=== PATIENT | male | born 1960 | race Caucasian/White ===

== ENCOUNTER 2016-05-18 14:10 | Inpatient (IN) | payer OTHER ==
[~2016-05-18] VITALS: Ht 172.7 cm; Wt 113.4 kg
[2016-05-18 14:35] LABS: BASOPHILS 0.4 % (0.0-2.0); EOSINOPHILS 2.3 % (0-7); HEMATOCRIT 47.5 % (42.0-54.0); IMMATURE GRANULOCYTES 0.4 % (0-5); LYMPHOCYTES 20.9 % (15-50); MCH 25.9 pg (26.0-34.0); MCHC 31.6 g/dL (31.0-37.0); MCV 81.9 fL (80.0-100.0); MEAN PLATELET VOLUME 9.6 fL (7.4-10.4); PLATELET COUNT 204 10x3/uL (130-400); RDW 15.5 % (11.5-14.5); WBC 9.4 10x3/uL (4.8-10.8)
[2016-05-18 15:16] LABS: ALBUMIN 3.3 g/dL (3.4-5.0); ALKALINE PHOSPHATASE 118 U/L (46-116); ALT (SGPT) 57 U/L (10-68); BILIRUBIN - TOTAL 0.78 mg/dL (0.2-1.3); CALC OSMOLALITY 280 mosm/kg (275-300); CALCIUM 8.8 mg/dL (8.5-10.1); CARBON DIOXIDE 26.5 mmol/L (21.0-32.0); CHLORIDE - SERUM 101 mmol/L (98-107); CREATININE - SERUM 0.9 mg/dL (0.6-1.3); GLUCOSE 195 mg/dL (74-106); POTASSIUM - SERUM 3.6 mmol/L (3.5-5.1); PROTEIN - SERUM 7.9 g/dL (6.4-8.2); SODIUM 138 mmol/L (136-145); UREA NITROGEN 12 mg/dL (7-18); eGFR NON AFRICAN AMERICAN > 90 mL/min (90-120)
[2016-05-18 19:54] LABS: BASOPHILS 0.7 % (0.0-2.0); HEMATOCRIT 46.5 % (42.0-54.0); IMMATURE GRANULOCYTES 0.4 % (0-5); LYMPHOCYTES 21.9 % (15-50); MCHC 32.3 g/dL (31.0-37.0); MCV 80.4 fL (80.0-100.0); MEAN PLATELET VOLUME 9.8 fL (7.4-10.4); MONOCYTES 8.7 % (2-11); NEUTROPHILS 65.3 % (40-80); PLATELET COUNT 231 10x3/uL (130-400); RBC 5.78 10x6/uL (4.20-6.10); RDW 15.5 % (11.5-14.5); WBC 9.5 10x3/uL (4.8-10.8)
[2016-05-19 01:19] VITALS: BP 181/80; BMI 38.1
[2016-05-19 08:15] VITALS: BP 178/96
--- NOTE | 2016-05-19 09:41 | NUR ---
Patient Name: VALORIE WILHELM Admission Status: ER Accout number: [id number] Admission Date: 05-18-2016 : 1960 Admission Diagnosis: Attending: LAUREL Current LOS: 1 Anticipated DC Date: 05-21-2016 Planned Disposition: Home or Self Care Primary Insurance: [facility] Discharge Planning Comments: CM MET WITH PATIENT REGARDING D/C NEEDS AND PLANS. PATIENT STATED HIS (JERMAIN) WILL PICK HIM UP AT DISCHARGE. PATIENT STATED HE IS INDEPENDENT WITH HIS CARE AND HAS NO DME. PATIENT STATED THERE ARE NO STEPS OR STAIRS AT HIS HOME. PATIENTS HAS NO PCP AND USES [facility] ON [address]. PATIENT HAS NOT EVER HAD HOME HEALTH BEFORE AND DOES NOT THINK HE WILL NEED IT. CM WILL CONTINUE TO FOLLOW PATIENT WITH D/C NEEDS AND PLANS. PCP NONE [facility] [address] [phone] JERMAIN (SPOUSE) [phone] Senior Commercial Loan Officer: Katarina Orta Is the patient Alert and Oriented? Yes 0 * How many steps to enter\exit or inside your home? 0 0 * PCP NONE 0 * Pharmacy [facility] [address] 0 * Preadmission Environment Home with Family 0 * ADLs Independent 0 * Equipment None 0 * List name and contact numbers for known caregivers / representatives who currently or will assist patient after discharge: JERMAIN (SPOUSE) [phone] * Community resources currently utilized None 0 * Additional services required to return to the preadmission environment? Yes 0 * Can the patient safely return to the preadmission environment? Yes 0 * Has this patient been hospitalized within the prior 30 days at any hospital? No 0 Grand Total: 0
--- NOTE | 2016-05-19 09:48 | NUR ---
WOUND CARE: NOTED OPEN WOUNDS TO LEFT CALF. PT STATES THEY STARTED AFTER HE FELL AND SCRAPED HIS LEG. WOUND TO LATERAL CALF MEASURES 11CM X 7CM - EDGES ARE IRREGULAR AND FLAT - WOUND BED IS PINK AND SHINY. WOUND TO BACK OF LEFT CALF MEASURES 4CM X 4CM - FLAT IRREGULAR EDGES - SHINY PINK WOUND BED. LEFT LOWER LEG IS EDEMATOUS (3+), HEMOSIDERIN STAINING NOTED, DRY PEELING SKIN NOTED ESPECIALLY AT ANKLES. PALPABLE PULSES. LARGE AMOUNT OF YELLOW DRAINAGE WAS NOTED ON DRESSING. PT IS UNSURE OF MED HX, STATES HE HASN'T GONE TO DR IN MANY YEARS. HE DID STATE THAT HE HAD A WOUND ON HIS RIGHT LOWER LEG ABOUT A YEAR AGO AND IT TOOK A LONG TIME TO HEAL. RECOMMEND APPLYING MAXORB AG TO WOUND BEDS AND WRAPPING WITH KERLIX TO SECURE. INSTRUCTED PT TO TRY TO KEEP LEG ELEVATED. HE VOICED UNDERSTANDING. WOUND CARE WILL CONTINUE TO MONITOR.
[2016-05-19 11:46] VITALS: BP 178/100
[2016-05-19 11:50] LABS: BASOPHILS 0.5 % (0.0-2.0); EOSINOPHILS 3.6 % (0-7); HEMATOCRIT 45.7 % (42.0-54.0); HEMOGLOBIN 14.3 g/dL (13.5-17.5); IMMATURE GRANULOCYTES 0.3 % (0-5); LYMPHOCYTES 23.4 % (15-50); MCH 25.5 pg (26.0-34.0); MCHC 31.3 g/dL (31.0-37.0); MCV 81.5 fL (80.0-100.0); MEAN PLATELET VOLUME 9.5 fL (7.4-10.4); MONOCYTES 8.5 % (2-11); NEUTROPHILS 63.7 % (40-80); PLATELET COUNT 216 10x3/uL (130-400); RBC 5.61 10x6/uL (4.20-6.10); RDW 15.3 % (11.5-14.5); WBC 7.3 10x3/uL (4.8-10.8)
[2016-05-19 12:08] LABS: ALKALINE PHOSPHATASE 109 U/L (46-116); ALT (SGPT) 66 U/L (10-68); CALC OSMOLALITY 273 mosm/kg (275-300); CALCIUM 8.4 mg/dL (8.5-10.1); CARBON DIOXIDE 28.2 mmol/L (21.0-32.0); CHLORIDE - SERUM 103 mmol/L (98-107); CREATININE - SERUM 0.8 mg/dL (0.6-1.3); PROTEIN - SERUM 7.8 g/dL (6.4-8.2); SODIUM 136 mmol/L (136-145); UREA NITROGEN 15 mg/dL (7-18); eGFR NON AFRICAN AMERICAN > 90 mL/min (90-120)
[2016-05-19 12:12] LABS: GLUCOSE 122 mg/dL (74-106)
[2016-05-19 13:05] VITALS: Ht 172.7 cm; Wt 113.4 kg
--- NOTE | 2016-05-19 13:33 | NUR ---
NUTRITION MONITORING & EVAL ATTEMPTED DM DIET EDU. PT EATING TAKEOUT LUNCH ON FIRST ATTEMPT, PT STATES TOO GROGGY FROM DEMEROL ON SECOND ATTEMPT. LEFT EDU PACKET IN ROOM. WILL ATTEMPT TO SEE PT AGAIN. RD FOLLOWING
[2016-05-19 16:10] VITALS: BP 165/89
[2016-05-19 19:00] VITALS: BP 183/92
--- NOTE | 2016-05-19 22:06 | NUR ---
RESTING IN BED EYES CLOSED. AROUSES TO VOICE. ALERT ORIENTED CONVERSANT. DENIES NEEDS. NO ACUTE DISTRESS NOTED
[2016-05-20] VITALS: BP 190/97
--- NOTE | 2016-05-20 00:07 | NUR ---
RESTING WITH EYES CLOSED, RESP WITH EASE, LE DSG CDI, SR'S UP CL IN REACH
[2016-05-20 04:00] VITALS: BP 103/86
--- NOTE | 2016-05-20 07:00 | NUR ---
PATIENT RESTING QUIETLY WHEN EYES CLOSED. WOKE PATIENT UP. PATIENT IN CONTACT ISOLATION. ISOLATION PRECAUTIONS MAINTAINED. EDUCATED PATIENT ON CONTACT ISOLATION. EXPLAINED THE REASON HE IS IN ISOLATION. PATIENT VERBALIZED UNDERSTANDING AND DENIES QUESTIONS.
[2016-05-20 07:05] LABS: BASOPHILS 0.6 % (0.0-2.0); EOSINOPHILS 4.1 % (0-7); HEMATOCRIT 44.8 % (42.0-54.0); HEMOGLOBIN 14.1 g/dL (13.5-17.5); IMMATURE GRANULOCYTES 0.3 % (0-5); LYMPHOCYTES 18.2 % (15-50); MCH 25.5 pg (26.0-34.0); MCHC 31.5 g/dL (31.0-37.0); MCV 80.9 fL (80.0-100.0); MONOCYTES 9.2 % (2-11); NEUTROPHILS 67.6 % (40-80); PLATELET COUNT 227 10x3/uL (130-400); RBC 5.54 10x6/uL (4.20-6.10); RDW 15.3 % (11.5-14.5); WBC 8.8 10x3/uL (4.8-10.8)
[2016-05-20 07:12] LABS: ALBUMIN 3.1 g/dL (3.4-5.0); ALKALINE PHOSPHATASE 109 U/L (46-116); ALT (SGPT) 57 U/L (10-68); BILIRUBIN - TOTAL 0.61 mg/dL (0.2-1.3); CALC OSMOLALITY 278 mosm/kg (275-300); CALCIUM 8.7 mg/dL (8.5-10.1); CARBON DIOXIDE 27.1 mmol/L (21.0-32.0); CHLORIDE - SERUM 105 mmol/L (98-107); CREATININE - SERUM 0.9 mg/dL (0.6-1.3); GLUCOSE 127 mg/dL (74-106); POTASSIUM - SERUM 4.1 mmol/L (3.5-5.1); PROTEIN - SERUM 7.4 g/dL (6.4-8.2); SODIUM 138 mmol/L (136-145); UREA NITROGEN 16 mg/dL (7-18); eGFR NON AFRICAN AMERICAN > 90 mL/min (90-120)
[2016-05-20 08:04] VITALS: BP 190/91
--- NOTE | 2016-05-20 08:25 | NUR ---
PATIENT AWAKE, ALERT AND ORIENTED X'S 4. RESPIRATIONS ARE EVEN AND UNLABORED ON ROOM AIR. PATIENT PREPARING TO GET DRESSING CHANGED, LUCI RICARDO LPN GOING TO DO DRESSING CHANGE. ADMINISTERED DEMERAL 25MG IV FOR PAIN.
--- NOTE | 2016-05-20 08:30 | NUR ---
DRESSING TO LEFT LOWER LEG CHANGED BY LUCI RICARDO LPN.
--- NOTE | 2016-05-20 08:30 | NUR ---
SPOKE WITH PASTORA KEANE RN WOUND CARE NURSE. NOTIFIED HER THAT MAXORB WAS STUCK TO WOUND. SHE STATED "CHANGE THE ORDER TO ADAPTIC."
[2016-05-20 11:39] VITALS: BP 181/87
--- NOTE | 2016-05-20 12:00 | NUR ---
NUTRITION MONITORING & EVAL SPOKE WITH PT RE:DIABETIC EDU. PT STATES HE WOULD PREFER TO SLEEP AT THIS TIME. RD FOLLOWING
[2016-05-20 15:36] VITALS: BP 143/85
[2016-05-20 19:00] VITALS: BP 163/100
[2016-05-21] VITALS: BP 171/98
[2016-05-21 04:00] VITALS: BP 198/110
--- NOTE | 2016-05-21 05:14 | NUR ---
BP 189/110 - GAVE APPRESOLINE 10 MG IV PUSH. NO OTHER NEEDS. CONTACT ISOLATION PRECAUTIONS OBSERVED.
[2016-05-21 05:39] LABS: BASOPHILS 0.5 % (0.0-2.0); EOSINOPHILS 3.6 % (0-7); HEMATOCRIT 47.6 % (42.0-54.0); HEMOGLOBIN 15.1 g/dL (13.5-17.5); IMMATURE GRANULOCYTES 0.4 % (0-5); MCH 25.7 pg (26.0-34.0); MCHC 31.7 g/dL (31.0-37.0); MCV 81.1 fL (80.0-100.0); MEAN PLATELET VOLUME 9.6 fL (7.4-10.4); MONOCYTES 11.1 % (2-11); NEUTROPHILS 67.4 % (40-80); PLATELET COUNT 202 10x3/uL (130-400); RBC 5.87 10x6/uL (4.20-6.10); RDW 15.8 % (11.5-14.5); WBC 9.3 10x3/uL (4.8-10.8)
[2016-05-21 05:52] LABS: ALBUMIN 3.2 g/dL (3.4-5.0); ALKALINE PHOSPHATASE 110 U/L (46-116); ALT (SGPT) 47 U/L (10-68); BILIRUBIN - TOTAL 0.61 mg/dL (0.2-1.3); CALC OSMOLALITY 274 mosm/kg (275-300); CALCIUM 8.9 mg/dL (8.5-10.1); CARBON DIOXIDE 25.6 mmol/L (21.0-32.0); CHLORIDE - SERUM 102 mmol/L (98-107); CREATININE - SERUM 0.9 mg/dL (0.6-1.3); GLUCOSE 103 mg/dL (74-106); POTASSIUM - SERUM 4.3 mmol/L (3.5-5.1); PROTEIN - SERUM 7.8 g/dL (6.4-8.2); SODIUM 137 mmol/L (136-145); UREA NITROGEN 16 mg/dL (7-18); eGFR NON AFRICAN AMERICAN > 90 mL/min (90-120)
--- NOTE | 2016-05-21 07:30 | NUR ---
PATIENT AWAKE, ALERT AND ORIENTED X'S 4. RESPIRATIONS ARE EVEN AND UNLABORED ON ROOM AIR. PATIENT LAYING IN BED. HOB 30 DEGREES. PATIENT DENIES NEEDS AT THIS TIME. CONTACT ISOLATION PRECAUTIONS MAINTAINED.
[2016-05-21 08:10] VITALS: BP 186/87
[2016-05-21 11:41] VITALS: BP 180/84
--- NOTE | 2016-05-21 12:03 | NUR ---
PT RESTING QUIETLY, BREATHING EVEN AND UNLABORED, NO S/S OF DISTRESS. CALL LIGHT IN REACH. WILL CONTINUE TO MONITOR.
--- NOTE | 2016-05-21 12:26 | NUR ---
NUTRITION MONITORING & EVMILAGRO SPOKE WITH PT RE:DM DIET EDU. REVIEWED CARB CHOICES, SERVING SIZES, LABEL READING. DISCUSSED CHECKING BLOOD SUGAR, APPROPRIATE #'S. ANSWERED PT QUESTIONS, PROVIDED RD CONTACT INFORMATION. RD FOLLOWING
--- NOTE | 2016-05-21 13:50 | NUR ---
PT RESTING QUIETLY. PT DOES NOT WANT TO AMBULATE AT THIS TIME, WILL ATTEMPT TO GET HIM UP LATER. DENIES AND NEEDS AT THIS TIME. CALL LIGHT IN REACH, BED IN LOWEST POSITION. WILL CONTINUE TO MONITOR.
--- NOTE | 2016-05-21 14:05 | NUR ---
PT RESTING QUIETLY ON LEFT SIDE, BREATHING EVEN AND UNLABORED, NO S/S OF DISTRESS, CALL LIGHT IN REACH. BED IN LOWEST POSITION.
[2016-05-21 16:03] VITALS: BP 168/72
--- NOTE | 2016-05-21 17:10 | NUR ---
PATIENT AWAKE, ALERT AND ORIENTED X'S 4. RESPIRATIONS ARE EVEN AND UNLABORED ON ROOM AIR. PATIENT DENIES NEEDS AT THIS TIME. CONTACT PRECAUTIONS MAINTAINED.
[2016-05-21 19:00] VITALS: BP 162/90
[2016-05-22] VITALS: BP 181/76
--- NOTE | 2016-05-22 03:38 | NUR ---
PT IS ASLEEP WITH EASY RESPIRATIONS AND NO DISTRESS NOTED. HE REMAINS IN ISOLATION ORDERED. THE BED IS LOW, RAILS UP X'S 2 WITH THE CALL LIGHT AT HAND.
[2016-05-22 04:00] VITALS: BP 158/86
[2016-05-22 06:02] LABS: BASOPHILS 0.5 % (0.0-2.0); HEMATOCRIT 47.7 % (42.0-54.0); HEMOGLOBIN 15.1 g/dL (13.5-17.5); IMMATURE GRANULOCYTES 0.6 % (0-5); LYMPHOCYTES 19.6 % (15-50); MCH 25.8 pg (26.0-34.0); MCHC 31.7 g/dL (31.0-37.0); MCV 81.4 fL (80.0-100.0); MEAN PLATELET VOLUME 9.6 fL (7.4-10.4); MONOCYTES 9.7 % (2-11); NEUTROPHILS 65.6 % (40-80); PLATELET COUNT 215 10x3/uL (130-400); RBC 5.86 10x6/uL (4.20-6.10); RDW 15.8 % (11.5-14.5); WBC 8.5 10x3/uL (4.8-10.8)
[2016-05-22 06:39] LABS: ALBUMIN 3.1 g/dL (3.4-5.0); ALKALINE PHOSPHATASE 106 U/L (46-116); ALT (SGPT) 46 U/L (10-68); BILIRUBIN - TOTAL 0.51 mg/dL (0.2-1.3); CALC OSMOLALITY 274 mosm/kg (275-300); CALCIUM 9.4 mg/dL (8.5-10.1); CARBON DIOXIDE 26.9 mmol/L (21.0-32.0); CHLORIDE - SERUM 101 mmol/L (98-107); GLUCOSE 113 mg/dL (74-106); POTASSIUM - SERUM 3.9 mmol/L (3.5-5.1); PROTEIN - SERUM 8.2 g/dL (6.4-8.2); SODIUM 136 mmol/L (136-145); UREA NITROGEN 18 mg/dL (7-18); eGFR NON AFRICAN AMERICAN 83 mL/min (90-120)
--- NOTE | 2016-05-22 07:25 | NUR ---
PATIENT RESTING WITH EYES CLOSED. NO S/S OF DISTRESS NOTED AT PRESENT TIME. PATIENT IS ON CONTACT ISOLATION PRECAUTIONS. CALL LIGHT IN PATIENT'S REACH. WILL MONITOR.
[2016-05-22 07:49] VITALS: BP 151/83
--- NOTE | 2016-05-22 08:20 | NUR ---
PATIENT RESTING IN BED WITH EYES CLOSED. PATIENT AWAKENS TO VERBAL STIMULI. CONTACT PRECAUTIONS IN PLACE. PATIENT IS ALERT AND ORIENTED X4. NO COMPLAINTS OF PAIN AT PRESENT TIME. ASSESSMENT COMPLETED PER FLOWSHEET. SCHEDULED MORNING MEDICATIONS GIVEN TO PATIENT. PATIENT TOLERATED WELL WITH CRANBERRY JUICE. PATIENT DENIES ANY NEEDS AT PRESENT TIME. CALL LIGHT IN REACH. WILL MONITOR.
[2016-05-22 12:22] VITALS: BP 177/97
[2016-05-22] MEDS ORDERED: LISINOPRIL10 MG PO (13:20)
[2016-05-22] MEDS ORDERED: PROTONIX40 MG PO (13:21)
[2016-05-22] MEDS ORDERED: HCTZ25 MG PO (13:21)
[2016-05-22] MEDS ORDERED: GLUCOPHAGE500 MG PO (13:22)
[2016-05-22] MEDS ORDERED: LEVAQUIN750 MG PO (13:58)
--- NOTE | 2016-05-22 15:45 | NUR ---
DISCHARGE INSTRUCTIONS VERBALIZED TO PATIENT. PATIENT VERBALIZED UNDERSTANDING AND SIGNED DISCHARGE INSTRUCTIONS. METFORMIN AND LEVAQUIN PRESCRIPTIONS GIVEN TO PATIENT. PATIENT'S FRIEND HERE TO DRIVE PATIENT HOME. PATIENT DISCHARGED VIA WHEELCHAIR TO THE CAR.
--- NOTE | 2016-07-19 12:39 | DS ---
PATIENT:VALORIE WILHELM :64 MEDICAL RECORD: [id number] DISCHARGE SUMMARY ADMISSION DATE: 05/18/16 DISCHARGE DATE: 05/22/16 ADMISSION DATE: 05/18/2016 DISCHARGE DATE: 05/22/2016 DISCHARGE DIAGNOSES: 1. New onset of diabetes mellitus. 2. Left lower extremity cellulitis. 3. Nicotine dependency. 4. Positive wound cultures for Staphylococcus aureus and Pseudomonas aeruginosa. CONSULT: Dr. Lobato. HOSPITAL COURSE: This is a 56-year-old male patient, who had no primary care, who is admitted to Dr. Medina's med on-call, presented with leg pain. Reportedly, he hit his leg approximately 2 weeks ago and did not realize he had a wound until a week ago that progressively gotten worse. He was noted to have a lower extremity cellulitis and was admitted for IV antibiotics and a surgical consultation. His wound cultures were positive for Staph and pseudomonas. He was placed on Teflaro. The patient underwent an imaging study, a left tib-fib film, which showed soft tissue swelling and edema of the left calf, but no underlying bony abnormalities. The venous Doppler was negative. He was given a nicotine patch for his tobacco dependency and Dr. Lobato was consulted for the cellulitis. His wounds were covered and dressed. His antibiotics were deescalated to Levaquin and triple antibiotic therapy. He was counseled on smoking cessation. He was started on metformin during his hospitalization for diabetes mellitus. He was thought to be stable for discharge to home. He was to follow up with [facility] house calls as well as the community counseling. See med rec. TRANSINT:[id number] Voice Confirmation ID: [id number] DOCUMENT ID: [id number] Dictated By: LANDRY THAKUR I have interviewed/examined the above patient and agree with these documented findings. ROXANA MEDINA MD at 0904 at 1238 CC: [id number] DICTATION DATE: 07/14/16 0855 STAGE SET UP WORKER: 07/14/16 2255 DIS IN 05/22/16 [id number] [place] [address]
== END 2016-05-22 15:45 | disposition home or self-care (01) | DRG 603 ==
LOC: D.ER 14:10 → D.MS 20:01
PROVIDERS: Emergency Medicine; ADMIT Family Medicine Adult Medicine
DX: L03.116 Cellulitis of left lower limb (principal); F17.203 Nicotine dependence unspecified, with withdrawal; I10 Essential (primary) hypertension; E11.9 Type 2 diabetes mellitus without complications

== ENCOUNTER 2016-09-11 22:51 | Emergency (ER) | payer OTHER ==
[2016-05-19 13:05] VITALS: BMI 38.0
[~2016-09-11 22:51] MED LIST: GLUCOPHAGE500 MG PO; HCTZ25 MG PO; LEVAQUIN750 MG PO; LISINOPRIL10 MG PO; PROTONIX40 MG PO
[2016-09-11 23:35] LABS: BASOPHILS 0.3 % (0-2); EOSINOPHILS 2.4 % (0-7); HEMATOCRIT 46.3 % (42.0-54.0); HEMOGLOBIN 14.4 g/dL (13.5-17.5); IMMATURE GRANULOCYTES 0.4 % (0-5); LYMPHOCYTES 18.3 % (15-50); MCH 25.8 pg (26.0-34.0); MCHC 31.1 g/dL (31.0-37.0); MCV 82.8 fL (80.0-100.0); MEAN PLATELET VOLUME 9.8 fL (7.4-10.4); MONOCYTES 6.3 % (2-11); NEUTROPHILS 72.3 % (40-80); PLATELET COUNT 254 10x3/uL (130-400); RBC 5.59 10x6/uL (4.20-6.10); RDW 15.5 % (11.5-14.5); WBC 13.9 10x3/uL (4.8-10.8)
[2016-09-11 23:50] LABS: ALBUMIN 3.4 g/dL (3.4-5.0); ALKALINE PHOSPHATASE 99 U/L (46-116); ALT (SGPT) 31 U/L (10-68); BILIRUBIN - TOTAL 0.68 mg/dL (0.2-1.3); CALC OSMOLALITY 287 mosm/kg (275-300); CALCIUM 8.9 mg/dL (8.5-10.1); CARBON DIOXIDE 31.5 mmol/L (21.0-32.0); CHLORIDE - SERUM 104 mmol/L (98-107); CREATININE - SERUM 1.2 mg/dL (0.6-1.3); GLUCOSE 160 mg/dL (74-106); POTASSIUM - SERUM 3.6 mmol/L (3.5-5.1); PROTEIN - SERUM 8.7 g/dL (6.4-8.2); SODIUM 141 mmol/L (136-145); UREA NITROGEN 23 mg/dL (7-18); eGFR NON AFRICAN AMERICAN 67 mL/min (90-120)
[2016-09-11 23:52] LABS: HEMOGLOBIN A1C 6.3 % (4.8-6.0)
[2016-09-11 23:59] LABS: PRO BNP 69 pg/mL (0-125)
[2016-09-12 00:01] LABS: TROPONIN-I < 0.017 ng/mL (0.000-0.060)
== END 2016-09-12 00:55 | disposition home or self-care (01) ==
LOC: D.ER 22:51
PROVIDERS: Family Medicine
DX: J44.1 Chronic obstructive pulmonary disease with (acute) exacerbation (principal); R06.00 Dyspnea, unspecified; E11.9 Type 2 diabetes mellitus without complications; E66.9 Obesity, unspecified

== ENCOUNTER 2019-07-08 16:57 | Inpatient (IN) | payer SELFPAY ==
[~2019-07-08] VITALS: Ht 172.7 cm; Wt 118.2 kg
[2019-07-08] VITALS (25 sets, daily range): BP systolic 95–222; BP diastolic 63–133; BMI 40.8
--- NOTE | 2019-07-08 17:00 | NUR ---
REPORT CALLED TO KIP CORREA WITH [facility] [phone]
--- NOTE | 2019-07-08 17:15 | NUR ---
1700- PATIENT IN CT VIA LIFENET STRETCHER. ACCOMPANIED BY RN. 1705- RETURNED FROM CT VIA ER STRETCHER. RN ACCOMPANIED. ATTACHED TO CM, BPM, AND PULSE OX MONITOR AT THIS TIME. EDP CALLED TO ROOM FOR ASSESSMENT. 170- DR. ROMERO AT BEDSIDE.
[2019-07-08 17:22] LABS: BASOPHILS 0.3 % (0-2); EOSINOPHILS 0.5 % (0-7); HEMATOCRIT 52.4 % (42.0-54.0); HEMOGLOBIN 16.4 g/dL (13.5-17.5); IMMATURE GRANULOCYTES 0.3 % (0-5); LYMPHOCYTES 7.7 % (15-50); MCH 24.7 pg (26.0-34.0); MCHC 31.3 g/dL (31.0-37.0); MCV 78.9 fL (80.0-100.0); MEAN PLATELET VOLUME 9.6 fL (7.4-10.4); MONOCYTES 4.7 % (2-11); NEUTROPHILS 86.5 % (40-80); PLATELET COUNT 213 10x3/uL (130-400); RDW 15.9 % (11.5-14.5); WBC 12.5 10x3/uL (4.8-10.8)
[2019-07-08 17:24] LABS: RBC 6.64 10x6/uL (4.20-6.10)
[2019-07-08 17:32] LABS: APTT 27.2 SECONDS (22.8-39.4); INR 1.11 (0.85-1.17); PROTIME 14.3 SECONDS (11.6-15.0)
[2019-07-08 17:33] LABS: ANION GAP 12.2 mmol/L (8-16); CALCIUM 9.1 mg/dL (8.5-10.1); CARBON DIOXIDE 29.7 mmol/L (21.0-32.0); CREATININE - SERUM 1.2 mg/dL (0.6-1.3); POTASSIUM - SERUM 3.9 mmol/L (3.5-5.1)
[2019-07-08 17:39] LABS: ALBUMIN 3.5 g/dL (3.4-5.0); BILIRUBIN - TOTAL 1.21 mg/dL (0.2-1.3); PROTEIN - SERUM 9.2 g/dL (6.4-8.2)
--- NOTE | 2019-07-08 18:30 | NUR ---
DOCUMENTED TPA ON THE WRONG PATIENT, THIS PATIENT DID NOT RECEIVE TPA.
--- NOTE | 2019-07-08 18:30 | NUR ---
TPA INFUSION COMPLETED AT 1425
--- NOTE | 2019-07-08 19:55 | NUR ---
Received pt from ER via stretcher to room 2310. Pt is awake and answers questions appropriately. Attched to monitors, all are working correctly. Admission information obtained. No s/s of distress noted. Will continue to monitor.
--- NOTE | 2019-07-08 20:39 | NUR ---
NOTES PER GURVINDER ACEVES RN AT 1700 AND 1830 WERE DROPHAMMER OPERATOR ON THE WRONG PATIENT. THIS PATIENT DID NOT RECEIVE TPA.
--- NOTE | 2019-07-08 21:00 | NUR ---
Pt is laying in bed watching tv at this time. No needs voiced. No s/s of distress noted. Will continue to monitor.
--- NOTE | 2019-07-08 23:00 | NUR ---
Reassessment completed, see flowsheet for details. Pt is laying in bed with eyes closed. No needs voiced. No s/s of distress noted. Will continue to monitor.
[2019-07-09] VITALS (55 sets, daily range): BP systolic 81–141; BP diastolic 49–79; Ht 172.7 cm; Wt 118.2 kg
--- NOTE | 2019-07-09 01:00 | NUR ---
Pt is laying in bed with eyes closed. No s/s of distress noted. Will continue to monitor.
--- NOTE | 2019-07-09 03:00 | NUR ---
Reassessment completed, see flowsheet for details. Pt is laying in bed with eyes closed. No s/s of distress noted. Will continue to monitor.
[2019-07-09 04:28] LABS: BASOPHILS 0.2 % (0-2); EOSINOPHILS 0.8 % (0-7); HEMATOCRIT 46.9 % (42.0-54.0); HEMOGLOBIN 15.2 g/dL (13.5-17.5); IMMATURE GRANULOCYTES 0.2 % (0-5); LYMPHOCYTES 14.1 % (15-50); MCH 25.3 pg (26.0-34.0); MCHC 32.4 g/dL (31.0-37.0); MCV 78.2 fL (80.0-100.0); MEAN PLATELET VOLUME 9.8 fL (7.4-10.4); MONOCYTES 9.3 % (2-11); NEUTROPHILS 75.4 % (40-80); PLATELET COUNT 250 10x3/uL (130-400); RDW 15.7 % (11.5-14.5); WBC 12.3 10x3/uL (4.8-10.8)
[2019-07-09 04:59] LABS: CALCIUM 8.5 mg/dL (8.5-10.1); CARBON DIOXIDE 28.3 mmol/L (21.0-32.0); CREATININE - SERUM 1.3 mg/dL (0.6-1.3)
[2019-07-09 05:06] LABS: POTASSIUM - SERUM 3.3 mmol/L (3.5-5.1)
--- NOTE | 2019-07-09 07:00 | NUR ---
SEE ASSESSMENT. NEURO ASSESSMENT- AWAKE ALERT. FOLLOWS COMMANDS. NO ACUTE DISTRESS. ABLE TO FOLLOW DIRECTIONS. SLURRED SPEECH. DIFFICULT TO UNDERSTAND PATIENT. PERRL. MACHINE BUNCH MAKER EQUAL BILAT STRENGTH IN UPP EXTREMITIES. STRENGTH IN LOWER EXTREMITIES EQUAL BILAT. PATIENT STATES SEEING BLURRY AND DIPLOPIA.
--- NOTE | 2019-07-09 08:31 | NUR ---
DR HARDEN AT BEDSIDE.
[2019-07-09 09:25] LABS: CHOL - HDL RATIO 3.9 ratio (2.3-4.9); LDL-HDL RATIO 2.4 ratio (1.5-3.5)
[2019-07-09 11:02] LABS: BILIRUBIN NEGATIVE (NEGATIVE); GLUCOSE NEGATIVE (NEGATIVE); KETONE NEGATIVE (NEGATIVE); NITRITE NEGATIVE (NEGATIVE); SPECIFIC GRAVITY 1.015 (1.005-1.020); UDS - AMPHET POSITIVE QUAL (NEGATIVE); UDS - BARB NEGATIVE QUAL (NEGATIVE); UDS - BENZO NEGATIVE QUAL (NEGATIVE); UDS - COCAINE NEGATIVE QUAL (NEGATIVE); UDS - OPIATE NEGATIVE QUAL (NEGATIVE); UDS - PCP NEGATIVE QUAL (NEGATIVE); UDS - THC NEGATIVE QUAL (NEGATIVE); UROBILINOGEN NORMAL (NORMAL)
[2019-07-09 11:10] LABS: BACTERIA FEW /hpf (NEGATIVE); EPITHELIAL CELLS 0-5 /hpf (0-5); HYALINE CAST 0-5 /lpf (NONE SEEN); RED CELLS - URINE NONE SEEN /hpf (0-5)
--- NOTE | 2019-07-09 13:00 | NUR ---
no changes. slurred speech. equal demographer strength upper extrem bilat.
--- NOTE | 2019-07-09 19:00 | NUR ---
Report received from off going nurse. Pt is resting in bed with eyes open at this time. No s/s of distress noted. Will continue to monitor. Initial assessment completed, see flowsheet for details.
--- NOTE | 2019-07-09 21:00 | NUR ---
Pt is resting in bed with eyes open at this time. Family at bedside. Received a call from Pt's sister, password could not be provided, pt gave me permission to speak with his sister. No further needs at this time. No s/s of distress noted. Will continue to monitor.
--- NOTE | 2019-07-09 23:00 | NUR ---
Reassessment completed, see flowsheet for details. Pt is laying in bed with eyes open at this time. No needs voiced. No s/s of distress noted. Will continue to monitor.
[2019-07-10] VITALS (51 sets, daily range): BP systolic 104–150; BP diastolic 47–113
--- NOTE | 2019-07-10 01:00 | NUR ---
Pt is laying in bed trying to pee. Pt is grunting and moaning and is unsucessful at peeing. At this point in the night only has put out 100 ml's of urine even after receiving lasix. Jackman inserted, pt states releif from discomfort and immediately fell asleep. Will continue to monitor.
--- NOTE | 2019-07-10 03:00 | NUR ---
Reassessment completed, see flowsheet for details. No needs voiced at this time. No s/s of distress. Will continue to monitor.
[2019-07-10 04:25] LABS: BASOPHILS 0.2 % (0-2); EOSINOPHILS 1.7 % (0-7); HEMATOCRIT 45.9 % (42.0-54.0); HEMOGLOBIN 14.4 g/dL (13.5-17.5); IMMATURE GRANULOCYTES 0.3 % (0-5); LYMPHOCYTES 13.4 % (15-50); MCH 24.9 pg (26.0-34.0); MCHC 31.4 g/dL (31.0-37.0); MCV 79.3 fL (80.0-100.0); MEAN PLATELET VOLUME 10.5 fL (7.4-10.4); MONOCYTES 7.8 % (2-11); NEUTROPHILS 76.6 % (40-80); PLATELET COUNT 230 10x3/uL (130-400); RBC 5.79 10x6/uL (4.20-6.10); WBC 12.5 10x3/uL (4.8-10.8)
[2019-07-10 04:39] LABS: ANION GAP 10.7 mmol/L (8-16); CALCIUM 7.9 mg/dL (8.5-10.1); CARBON DIOXIDE 28.5 mmol/L (21.0-32.0); CREATININE - SERUM 1.3 mg/dL (0.6-1.3); POTASSIUM - SERUM 3.2 mmol/L (3.5-5.1)
--- NOTE | 2019-07-10 05:00 | NUR ---
Pt is laying in bed with eyes closed at this time. When asked about getting a bath he said maybe later that he just wanted to sleep now. No further needs noted. Will continue to monitor.
--- NOTE | 2019-07-10 07:20 | NUR ---
PATIENT SLEEPING. EASILY AROUSED. ALERT AND ORIENTED. BLURRY VISION. SLOW R PUPIL. BRISK L PUPIL. SEE ASSESSMENT. WILL CONTINUET MONITOR
--- NOTE | 2019-07-10 15:22 | NUR ---
chg bath done at this time.
--- NOTE | 2019-07-10 19:00 | NUR ---
Report received from off going nurse. Pt is laying in bed with eyes closed. No needs voiced at this time. Initial assessment completed, see flowsheet for details. No s/s of distress noted. Will continue to monitor.
--- NOTE | 2019-07-10 21:00 | NUR ---
Pt is laying in bed with eyes closed. No needs voiced. No s/s of distress noted. Will continue to monitor.
--- NOTE | 2019-07-10 23:00 | NUR ---
Reassessment completed, see flowsheet for details. Pt is laying in bed with eyes closed. No needs voiced. No s/s of distress noted. Will continue to monitor.
[2019-07-11] VITALS (10 sets, daily range): BP systolic 125–156; BP diastolic 66–78
--- NOTE | 2019-07-11 01:00 | NUR ---
Pt is laying in bed with eyes closed at this time. No needs voiced. No s/s of distress noted. Will continue to monitor.
--- NOTE | 2019-07-11 03:00 | NUR ---
Reassessment completed, see flowsheet for details. Pt is laying in bed with eyes closed. No needs voiced at this time. No s/s of distress noted. Will continue to monitor.
[2019-07-11 04:35] LABS: BASOPHILS 0.5 % (0-2); EOSINOPHILS 3.7 % (0-7); HEMATOCRIT 47.4 % (42.0-54.0); HEMOGLOBIN 14.7 g/dL (13.5-17.5); IMMATURE GRANULOCYTES 0.2 % (0-5); LYMPHOCYTES 12.6 % (15-50); MCV 80.6 fL (80.0-100.0); MEAN PLATELET VOLUME 10.5 fL (7.4-10.4); MONOCYTES 8.1 % (2-11); NEUTROPHILS 74.9 % (40-80); PLATELET COUNT 238 10x3/uL (130-400); RBC 5.88 10x6/uL (4.20-6.10); WBC 12.1 10x3/uL (4.8-10.8)
[2019-07-11 04:55] LABS: ANION GAP 9.2 mmol/L (8-16); CALCIUM 8.5 mg/dL (8.5-10.1); CARBON DIOXIDE 28.7 mmol/L (21.0-32.0); CREATININE - SERUM 1.2 mg/dL (0.6-1.3); POTASSIUM - SERUM 3.9 mmol/L (3.5-5.1)
--- NOTE | 2019-07-11 05:00 | NUR ---
Pt is laying in bed with eyes closed at this time. No needs voiced. No s/s of distress noted. Will continue to monitor.
--- NOTE | 2019-07-11 09:47 | NUR ---
Rehab Note- Acute Inpatient Rehab prescreen order received. The patient currently has no payer source at this time, therefore can't be admitted to [facility] Acute Inpatient Rehab. Thank you for this referral! Fani Holliday RN Clinical Liaison, [facility] Re[facility]
--- NOTE | 2019-07-11 11:28 | NUR ---
TRIED CALLING REPORT TO MED SURG. KIM IS CLEANING ROOM AT THE MOMENT. STATED THAT SHE WILL CALL ME BACK.
--- NOTE | 2019-07-11 11:48 | MORECARE ---
CASE MANAGEMENT DISCHARGE SUMMARY PATIENT: VALORIE WILHELM UNIT: [id number] ADM DATE: 07/08/19 AGE: 59 : 64 SEX: M ROOM/BED: D.2310 AUTHOR: KISHAN,DOC PHYSICIAN: REFERRING PHYSICIAN: JONATHAN ADAM MD DATE OF SERVICE: 07/11/19 Discharge Plan Patient Name: VALORIE WILHELM Facility: [facility]:[place] : 1960 Planned Disposition: Home Anticipated Discharge Date: Discharge Date: Expected LOS: Initial Reviewer: [id number] Initial Review Date: 07/10/2019 Generated: 07/11/19 12:48 pm Comments DCP- Discharge Planning Updated by [email or web address]: Brigida Calvert on 07/11/19 10:[address] LATE ENTRY - 07/10/19 Patient Name: VALORIE WILHELM Admission Status: ER Accout number: [id number] Admission Date: 07-08-2019 : 1960 Admission Diagnosis: Attending: JONATHAN ADAM Current LOS: 2 Anticipated DC Date: Planned Disposition: Home Primary Insurance: UNINSURED DISCOUNT PLAN Discharge Planning Comments: CM met with patient at bedside after explaining CM role and obtaining verbal consent. Patient lives at home alone where he is independent with his care and plans to return there upon discharge. Patient feels this would be a safe discharge. CM discussed availability / needs of home health and medical equipment. Patient denies any discharge needs at this time. Patient states he will have his family drive him home upon discharge. CM will continue to follow and assist as needed with discharge planning / needs. Vp Legal Affairs: Brigida Calvert DCPIA - Discharge Planning Initial Assessment Updated by [email or web address]: Brigida Calvert on 07/11/19 11:45 am * Is the patient Alert and Oriented? Yes * How many steps to enter\exit or inside your home? * PCP NO PCP * Pharmacy [facility] * Preadmission Environment Home Alone * ADLs Independent * Equipment None * List name and contact numbers for known caregivers / representatives who currently or will assist patient after discharge: YAAKOV WILHELM - [facility] - [phone] * Verbal permission to speak to the caregivers and representatives has been obtained from the patient. Yes * Community resources currently utilized None * Additional services required to return to the preadmission environment? No * Can the patient safely return to the preadmission environment? Yes * Has this patient been hospitalized within the prior 30 days at any hospital? No Patient Name: VALORIE WILHELM Page [id number] at 1148 All edits/amendments must be made on the electronic document DICTATION DATE: 07/11/19 1148 SOLAR ENERGY ENGINEER: PAM 07/11/19 1148 RPT#: [id number] DC DATE: STATUS: ADM IN [facility] [address] [place] [address] END OF REPORT
--- NOTE | 2019-07-11 11:56 | NUR ---
CALLED REPORT TO KIM ON MED SURG. PREPARING TO TAKE PT OVER TO FLOOR
--- NOTE | 2019-07-11 13:00 | NUR ---
TO ROOM 2217 FROM ICU VIA BED.PT IS WITHOUT DISTRESS.CALL LIGHT PLACED IN REACH.
--- NOTE | 2019-07-11 19:30 | NUR ---
PT LYING IN BED RESTING WITHOUT DISTRESS, AOX4. IV RIGHT FA AND WRIST SL. WEBB IN PLACE. REQUESTED AND GIVEN APPLE JUICE. DENIES OTHER NEEDS. CL IN REACH, WILL CTM
[2019-07-12] VITALS: BP 161/80
[2019-07-12 04:00] VITALS: BP 144/64
[2019-07-12 05:15] LABS: BASOPHILS 0.4 % (0-2); EOSINOPHILS 3.5 % (0-7); HEMATOCRIT 49.1 % (42.0-54.0); IMMATURE GRANULOCYTES 0.3 % (0-5); LYMPHOCYTES 14.8 % (15-50); MCH 24.9 pg (26.0-34.0); MCHC 30.5 g/dL (31.0-37.0); MCV 81.6 fL (80.0-100.0); MEAN PLATELET VOLUME 10.2 fL (7.4-10.4); MONOCYTES 10.8 % (2-11); NEUTROPHILS 70.2 % (40-80); PLATELET COUNT 214 10x3/uL (130-400); RBC 6.02 10x6/uL (4.20-6.10); RDW 16.5 % (11.5-14.5); WBC 10.5 10x3/uL (4.8-10.8)
[2019-07-12 05:39] LABS: ANION GAP 9.9 mmol/L (8-16); CALCIUM 8.2 mg/dL (8.5-10.1); CARBON DIOXIDE 30.9 mmol/L (21.0-32.0); CREATININE - SERUM 1.3 mg/dL (0.6-1.3); POTASSIUM - SERUM 3.8 mmol/L (3.5-5.1)
--- NOTE | 2019-07-12 09:00 | NUR ---
ASSESSMENT PER FLOW SHEET. PT IS WITHOUT DISTRESS.CALL LIGHT IN REACH
[2019-07-12 10:00] VITALS: BP 170/85
--- NOTE | 2019-07-12 10:51 | NUR ---
NUTRITION F/U CHART REVIEWED, PT VISIT. TOLERATING MECH SOFT/NECTAR LIQUIDS. 100% INTAKE RECENT MEALS. WILL CONTINUE TO PROVIDE DIET, MONITOR PO INTAKE. PT NOW IN ISOLATION. RD FOLLOWING
[2019-07-12 13:47] VITALS: BP 150/70
[2019-07-12 18:09] VITALS: BP 152/60
--- NOTE | 2019-07-12 20:00 | NUR ---
PATIENT IN BED WITH EYES CLOSED. NO S/S ACUTE DISTRESS. NO C/O AT THIS TIME. PATIENT IS ON 3L OF O2 NASAL CANNULA. PATIENT HAS AN IV IN LEFT FOREARM SALINE LOC. RIGHT HAND SALINE LOC. BOTH PATENT, BUT IV IN LEFT FOREARM IS TENDER. PATEINT HAS A WEBB AND MRSA IN THE URINE. PATIENT IS ON CONTACT PRECAUTIONS. PATIENT HAS RIGHT SIDED WEAKNESS, AND IS BEDFAST. CALL LIGHT IN PLACE. WILL CONTINUE TO MONITOR.
[2019-07-13] VITALS: BP 129/70
--- NOTE | 2019-07-13 00:52 | NUR ---
I have reviewed this patient and I concur with the Shift Assessment completed by the Licensed Practical Nurse today this shift..
[2019-07-13 05:25] LABS: BASOPHILS 0.4 % (0-2); EOSINOPHILS 2.7 % (0-7); HEMOGLOBIN 15.6 g/dL (13.5-17.5); IMMATURE GRANULOCYTES 0.2 % (0-5); LYMPHOCYTES 14.1 % (15-50); MCH 25.5 pg (26.0-34.0); MCHC 31.2 g/dL (31.0-37.0); MCV 81.7 fL (80.0-100.0); MEAN PLATELET VOLUME 10.7 fL (7.4-10.4); MONOCYTES 8.8 % (2-11); NEUTROPHILS 73.8 % (40-80); PLATELET COUNT 245 10x3/uL (130-400); RBC 6.12 10x6/uL (4.20-6.10); RDW 16.3 % (11.5-14.5)
[2019-07-13 05:41] LABS: ANION GAP 9.8 mmol/L (8-16); CALCIUM 8.4 mg/dL (8.5-10.1); CREATININE - SERUM 1.3 mg/dL (0.6-1.3); POTASSIUM - SERUM 3.8 mmol/L (3.5-5.1)
--- NOTE | 2019-07-13 07:20 | NUR ---
REC'D IN BED WITH EYES CLOSED EASILY TO AROUSED WHEN NAME IS CALLED. RESP EVEN AND UNLABORED WITH NO DISTRESS NOTED. CAN EXPRESS NEEDS AND WANTS. NO C/O NOTEE OR VOICED AT THIS TIME. TURN AND REPOSITION Q 2 HRS FOR COMFORT AND PREVENTION OF SKIN BREAKDOWN. ASSESSMENT COMPLETED. C/L IN REACH AT BEDSIDE.
[2019-07-13 09:30] VITALS: BP 133/69
[2019-07-13 13:50] VITALS: BP 114/55
[2019-07-13 17:37] VITALS: BP 119/72
[2019-07-13 18:08] LABS: AEROBE ID Final report (())
--- NOTE | 2019-07-13 18:45 | NUR ---
I have reviewed this patient and I concur with the Shift Assessment completed by the Licensed Practical Nurse today this shift.
[2019-07-13 20:00] VITALS: BP 116/63
--- NOTE | 2019-07-13 20:00 | NUR ---
PATIENT RESTING IN BED WITH EYES CLOSED. NO S/S OF ACUTE DISTRESS. NO C/O AT THIS TIME. PATIENT IS ON 3L OF O2 NASAL CANNULA. PATIENT HAS IV IN RIGHT HAND AND LEFT FOREARM, BOTH SALINE LOC. BOTH IV ARE PATENT WITHOUT REDNESS. SWELLING, OR TENDERNESS. PATIENT DOES HAVE SWELLING OF WHOLE RIGHT ARM. PATIENT LEGS ARE BOTH DISCOLORED. PATIENT IS INCONTINENT OF BOWEL AND HAS WEBB. PATIENT IS BEDBOUND. PATIENT IS ON CONTACT PRECAUTIONS FOR MRSA IN URINE. ENEDINA LIGHT IN PLACE. WILL CONTINUE TO MONITOR.
[2019-07-14] VITALS: BP 151/73
--- NOTE | 2019-07-14 03:41 | NUR ---
I have reviewed this patient and I concur with the Shift Assessment completed by the Licensed Practical Nurse today this shift.
[2019-07-14 04:00] VITALS: BP 107/57
[2019-07-14 06:41] LABS: BASOPHILS 0.4 % (0-2); EOSINOPHILS 4.4 % (0-7); HEMOGLOBIN 14.9 g/dL (13.5-17.5); IMMATURE GRANULOCYTES 0.4 % (0-5); LYMPHOCYTES 17.3 % (15-50); MCHC 30.4 g/dL (31.0-37.0); MCV 82.2 fL (80.0-100.0); MEAN PLATELET VOLUME 11.1 fL (7.4-10.4); MONOCYTES 8.6 % (2-11); NEUTROPHILS 68.9 % (40-80); PLATELET COUNT 258 10x3/uL (130-400); RBC 5.96 10x6/uL (4.20-6.10); RDW 16.4 % (11.5-14.5); WBC 10.8 10x3/uL (4.8-10.8)
[2019-07-14 07:07] LABS: ANION GAP 11.3 mmol/L (8-16); CALCIUM 8.4 mg/dL (8.5-10.1); CARBON DIOXIDE 31.5 mmol/L (21.0-32.0); CREATININE - SERUM 1.3 mg/dL (0.6-1.3); POTASSIUM - SERUM 3.8 mmol/L (3.5-5.1)
--- NOTE | 2019-07-14 07:10 | NUR ---
PT RESTING IN BED. NO SIGNS OF DISTRESSS. IV TO RIGHT HAND PATENT NO REDNESS OR TENDERNESS. ON 3L NC. HAS WEBB NO KINKS PATENT. ON CONTACT ISO. DENIES ANY FURTHER NEED AT THIS TIME. CALL LIGHT IN REACH. BED LOW POSITION. NO FAMILY AT BEDSIDE AT THIS TIME.
[2019-07-14 09:01] VITALS: BP 142/77
[2019-07-14 13:28] VITALS: BP 142/79
[2019-07-14 17:01] VITALS: BP 129/83
--- NOTE | 2019-07-14 19:15 | NUR ---
BEDSIDE REPORT RECEIVED. ASSUMED CARE OF PATIENT. VISITOR AT BEDSIDE. PATIENT DENIES NEEDS AT THIS TIME. HAS CALL LIGHT IN REACH. CPOC.
--- NOTE | 2019-07-14 19:30 | NUR ---
NEURO CHECKS PERFORMED. PATIENT PUPILS REACTIVE TO LIGHT. 3MM BILATERALLY. HAND REFERRAL CLERK WEAKER IN COMPARISON TO LEFT. FOOT PUMP RIGHT SLIGHTLY WEAKER THAN LEFT. PATIENT STATES "I CAN NO LONGER GIVE SOMEONE A HIGH FIVE WITH MY RIGHT HAND." HAND IS WARM TO TOUCH, CAP REFILL LESS THAN 3 SECONDS. CALL LIGHT IN REACH. CPOC.
[2019-07-14 19:46] VITALS: BP 119/68
--- NOTE | 2019-07-14 20:52 | NUR ---
PROVIDED TYLENOL WITH OTHER HS MEDICATION FOR COMPLAINTS OF BACK PAIN.
[2019-07-15] VITALS: BP 133/70
--- NOTE | 2019-07-15 01:07 | NUR ---
RESTING WITH NO SIGNS OR SYMPTOMS OF DISTRESS AT THIS TIME.
[2019-07-15 04:00] VITALS: BP 140/70
[2019-07-15 06:20] LABS: BASOPHILS 0.6 % (0-2); EOSINOPHILS 3.9 % (0-7); HEMATOCRIT 49.3 % (42.0-54.0); HEMOGLOBIN 15.2 g/dL (13.5-17.5); IMMATURE GRANULOCYTES 0.3 % (0-5); LYMPHOCYTES 16.1 % (15-50); MCH 25.2 pg (26.0-34.0); MCHC 30.8 g/dL (31.0-37.0); MCV 81.8 fL (80.0-100.0); MONOCYTES 10.5 % (2-11); NEUTROPHILS 68.6 % (40-80); PLATELET COUNT 235 10x3/uL (130-400); RBC 6.03 10x6/uL (4.20-6.10); RDW 16.4 % (11.5-14.5); WBC 10.4 10x3/uL (4.8-10.8)
[2019-07-15 06:41] LABS: CALCIUM 8.6 mg/dL (8.5-10.1); CARBON DIOXIDE 31.3 mmol/L (21.0-32.0); CREATININE - SERUM 1.2 mg/dL (0.6-1.3); MAGNESIUM - SERUM 2.3 mg/dL (1.8-2.4); PHOSPHOROUS 2.8 mg/dL (2.5-4.9); POTASSIUM - SERUM 3.3 mmol/L (3.5-5.1)
--- NOTE | 2019-07-15 07:10 | NUR ---
PT RESTING IN BED. NO SIGNS OF DISTRESS. IV TO RIGHT HAND PATENT NO REDNESS OR TENDERNESS. ON 3L NC. HAS WEBB NO KINKS PATENT NO REDNESS OR TENDERNESS. DENIES ANY FURTHER NEED AT THIS TIME. CALL LIGHT IN REACH. BED LOW POSITION. NO FAMILY AT BEDSIDE AT THIS TIME.
[2019-07-15 07:52] VITALS: BP 124/74
[2019-07-15 11:54] VITALS: BP 113/75
--- NOTE | 2019-07-15 14:38 | NUR ---
I have reviewed this patient and I concur with the Shift Assessment completed by the Licensed Practical Nurse today this shift.
[2019-07-15 16:07] VITALS: BP 140/65
--- NOTE | 2019-07-15 19:30 | NUR ---
ANSWERED PATIENT CALL LIGHT. PATIENT ALERT AND ORIENTED. SOB WHEN TALKING TO THIS NURSE. PATIENT NOT WEARING OXYGEN. CHECKED SATURATION, CURRENTLY 92%. REAPPLIED NASAL CANNULA. STRESSED TO PATIENT TO WEAR TO PREVENT RESPIRATORY ISSUES. PATIENT VERBALIZES UNDERSTANDING. COMPLAINS OF NECK AND BACK PAIN, STATES "IM HURTING FROM LAYING IN THIS BED ALL THE TIME." REQUESTS TYLENOL WITH OTHER MEDICATIONS. HAS WEBB CATHETER THATS DRAINING DARK YELLOW URINE. DENIES FURTHER NEEDS AT THIS TIME. CPOC.
[2019-07-15 20:00] VITALS: BP 128/77
--- NOTE | 2019-07-15 21:30 | NUR ---
RESTING WITH NO SIGNS OR SYMPTOMS OF DISTRESS AT THIS TIME. OXYGEN REMAINS IN PLACE. CPOC.
[2019-07-16] VITALS: BP 126/69
[2019-07-16 04:00] VITALS: BP 147/70
[2019-07-16 04:57] LABS: BASOPHILS 0.6 % (0-2); EOSINOPHILS 3.8 % (0-7); HEMATOCRIT 49.3 % (42.0-54.0); HEMOGLOBIN 15.3 g/dL (13.5-17.5); IMMATURE GRANULOCYTES 0.3 % (0-5); LYMPHOCYTES 18.5 % (15-50); MCH 25.2 pg (26.0-34.0); MCV 81.2 fL (80.0-100.0); MEAN PLATELET VOLUME 10.2 fL (7.4-10.4); MONOCYTES 8.5 % (2-11); NEUTROPHILS 68.3 % (40-80); PLATELET COUNT 239 10x3/uL (130-400); RBC 6.07 10x6/uL (4.20-6.10); RDW 16.1 % (11.5-14.5); WBC 9.4 10x3/uL (4.8-10.8)
[2019-07-16 05:22] LABS: ANION GAP 8.4 mmol/L (8-16); CALCIUM 8.8 mg/dL (8.5-10.1); CREATININE - SERUM 1.1 mg/dL (0.6-1.3); MAGNESIUM - SERUM 2.3 mg/dL (1.8-2.4); PHOSPHOROUS 3.1 mg/dL (2.5-4.9); POTASSIUM - SERUM 3.4 mmol/L (3.5-5.1)
--- NOTE | 2019-07-16 07:33 | NUR ---
PT RESTING IN BED. NO SIGNS OF DISTRESS. IV TO RIGHT HAND PATENT NO REDNESS RO TENDERNESS. ON 3L NC. DENIES ANY FURTHER NEED AT THIS ITME. CALL LIGHT IN REACH. BED LOW POSITION. NO FAMILY AT BEDSIDE AT THIS TIME.
--- NOTE | 2019-07-16 08:14 | NUR ---
LYING IN BED,WITHOUT DISTRESS.ISOLATION MAINTAINED
[2019-07-16 08:40] VITALS: BP 166/85
[2019-07-16 12:12] VITALS: BP 128/70
--- NOTE | 2019-07-16 12:36 | MORECARE ---
CASE MANAGEMENT DISCHARGE SUMMARY PATIENT: VALORIE WILHELM UNIT: [id number] ADM DATE: 07/08/19 AGE: 59 : 64 SEX: M ROOM/BED: D.2217 AUTHOR: KISHAN,DOC PHYSICIAN: REFERRING PHYSICIAN: JONATHAN ADAM MD DATE OF SERVICE: 07/16/19 Discharge Plan Patient Name: VALORIE WILHELM Facility: [facility]:[place] : 1960 Planned Disposition: Home Anticipated Discharge Date: Discharge Date: Expected LOS: Initial Reviewer: [email or web address] Initial Review Date: 07/10/2019 Generated: 07/16/19 1:35 pm DCP- Discharge Planning Updated by [id number]: Naomy Adam on 07/16/19 11:[address] I CALLED [facility] TO SEE IF THEY DID ANY NELIDA CASES. MYNOR IS WHO I SPOKE WITH AND SHE SAID THAT THEY DO NOT DO THAT. SHE DID NOT KNOW OF ANY PLACE IN [place] THAT WOULD. CM WILL CONTINUE TO FOLLOW AND ASSIST WITH DC PLANNING NEEDED DCP- Discharge Planning Updated by [email or web address]: Brigida Calvert on 07/11/19 10:[address] LATE ENTRY - 07/10/19 Patient Name: VALORIE WILHELM Admission Status: ER Accout number: [id number] Admission Date: 07-08-2019 : 1960 Admission Diagnosis: Attending: JONATHAN ADAM Current LOS: 2 Anticipated DC Date: Planned Disposition: Home Primary Insurance: UNINSURED DISCOUNT PLAN Discharge Planning Comments: CM met with patient at bedside after explaining CM role and obtaining verbal consent. Patient lives at home alone where he is independent with his care and plans to return there upon discharge. Patient feels this would be a safe discharge. CM discussed availability / needs of home health and medical equipment. Patient denies any discharge needs at this time. Patient states he will have his family drive him home upon discharge. CM will continue to follow and assist as needed with discharge planning / needs. Gun Tester: Brigida Calvert DCPIA - Discharge Planning Initial Assessment Updated by [email or web address]: Brigida Calvert on 07/11/19 11:45 am * Is the patient Alert and Oriented? Yes * How many steps to enter\exit or inside your home? * PCP NO PCP * [facility] * Preadmission Environment Home Alone * ADLs Independent * Equipment None * List name and contact numbers for known caregivers / representatives who currently or will assist patient after discharge: YAAKOV WILHELM - [place] - [phone] * Verbal permission to speak to the caregivers and representatives has been obtained from the patient. Yes * Community resources currently utilized None * Additional services required to return to the preadmission environment? No * Can the patient safely return to the preadmission environment? Yes * Has this patient been hospitalized within the prior 30 days at any hospital? No Last DP export: 07/11/19 10:48 a Patient Name: VALORIE WILHELM Page [phone] at 1236 All edits/amendments must be made on the electronic document DICTATION DATE: 07/16/19 1236 STATISTICAL MACHINE MECHANIC: PAM 07/16/19 1236 RPT#: [id number] DC DATE: STATUS: ADM IN [facility] [address] [place] [address] END OF REPORT
--- NOTE | 2019-07-16 12:47 | NUR ---
OT NOTE: PT PERFORMING BETTER TODAY. REPORTING SEVERE PAIN IN PENIS WHERE CATHETER WAS INSERTED.. NURSING NOTIFIED. HAD PT PRACTICE ROLLING FROM SIDE TO SIDE IN BED WITH MOD ASSIST; SUPINE TO SIT WITH MAX ASSIST; AFTER POSITIONING PT ON SIDE OF BED, HE WAS ABLE TO MAINTAIN STATIC SITTING WITHOUT SUPPORT. ALSO PRACTICED TRUNK STRENGTHENING ACT TO IMPROVE CORE STRENGTH ( MIN ASSIST WITH THIS AND PT VERY FEARFUL OF FALLING)..INCREASED MOVEMENT IN R UE, PARUL R HAND. AROM EXS FOR R UE/LE . BACK TO BED WITH MAX ASSIST. REPOSITIONED WITH MAX EDISIST DILLON FARRIS, OTR/L [phone]
[2019-07-16 16:01] VITALS: BP 152/82
[2019-07-16 20:00] VITALS: BP 149/74
[2019-07-17] VITALS: BP 153/69
--- NOTE | 2019-07-17 02:31 | NUR ---
I have reviewed this patient and I concur with the Shift Assessment completed by the Licensed Practical Nurse today this shift.
[2019-07-17 04:00] VITALS: BP 137/86
[2019-07-17 06:28] LABS: BASOPHILS 0.5 % (0-2); EOSINOPHILS 3.7 % (0-7); HEMATOCRIT 49.1 % (42.0-54.0); HEMOGLOBIN 15.4 g/dL (13.5-17.5); IMMATURE GRANULOCYTES 0.2 % (0-5); LYMPHOCYTES 16.7 % (15-50); MCH 25.5 pg (26.0-34.0); MCHC 31.4 g/dL (31.0-37.0); MCV 81.4 fL (80.0-100.0); MEAN PLATELET VOLUME 10.8 fL (7.4-10.4); MONOCYTES 7.6 % (2-11); NEUTROPHILS 71.3 % (40-80); PLATELET COUNT 236 10x3/uL (130-400); RBC 6.03 10x6/uL (4.20-6.10); RDW 16.1 % (11.5-14.5); WBC 10.1 10x3/uL (4.8-10.8)
[2019-07-17 06:47] LABS: CALC OSMOLALITY 285 mosm/kg (275-300); CALCIUM 8.8 mg/dL (8.5-10.1); CARBON DIOXIDE 31.2 mmol/L (21.0-32.0); CHLORIDE - SERUM 104 mmol/L (98-107); GLUCOSE 103 mg/dL (74-106); MAGNESIUM - SERUM 2.5 mg/dL (1.8-2.4); PHOSPHOROUS 3.6 mg/dL (2.5-4.9); POTASSIUM - SERUM 3.8 mmol/L (3.5-5.1); SODIUM 140 mmol/L (136-145); UREA NITROGEN 31 mg/dL (7-18); eGFR NON AFRICAN AMERICAN 82 mL/min (90-120)
--- NOTE | 2019-07-17 07:35 | NUR ---
ALERT AND ORIENTED. LUNGS CLEAR BILATERALLY. HEART SOUNDS S1 AND S2 HEARD IN ALL MENJIVAR. BOWEL SOUNDS ACTIVE X 4. SKIN INTACT WITHOUT REDNESS. IV TO RIGHT HAND PATENT WITHOUT REDNESS. BED LOW. CALL SANON AND PERSONAL ITEMS IN REACH. WILL CONTINUE TO MONITOR.
[2019-07-17 09:11] VITALS: BP 172/82
--- NOTE | 2019-07-17 11:42 | MORECARE ---
CASE MANAGEMENT DISCHARGE SUMMARY PATIENT: VALORIE WILHELM UNIT: [id number] ADM DATE: 07/08/19 AGE: 59 : 64 SEX: M ROOM/BED: D.2217 AUTHOR: KISHAN,DOC PHYSICIAN: REFERRING PHYSICIAN: JONATHAN ADAM MD DATE OF SERVICE: 07/17/19 Discharge Plan Patient Name: VALORIE WILHELM Facility: [facility]:[place] : 1960 Planned Disposition: Home Anticipated Discharge Date: Discharge Date: Expected LOS: Initial Reviewer: [email or web address] Initial Review Date: 07/10/2019 Generated: 07/17/19 12:42 pm Comments DCP- Discharge Planning Updated by [id number]: Naomy Adam on 07/17/19 10:[address] SPOKE TO NILESH ABOUT NELIDA THERAPY AND THEY DO NOT DO THAT, SHE STATED THAT SHE WOULD MAKE A COUPLE OF PHONE CALLS TO SEE IF SHE CAN HELP. I HAVE ALSO REACHED OUT TO TERERoberta WITH [facility], JAMSHID WITH [facility], AND I WILL REACH OUT TO SOME OTHER LOCAL ONES. DCP- Discharge Planning Updated by [email or web address]: Naomy Adam on 07/16/19 11:[address] I CALLED [facility] TO SEE IF THEY DID ANY NELIDA CASES. MYNOR IS WHO I SPOKE WITH AND SHE SAID THAT THEY DO NOT DO THAT. SHE DID NOT KNOW OF ANY PLACE IN [place] THAT WOULD. CM WILL CONTINUE TO FOLLOW AND ASSIST WITH DC PLANNING NEEDED DCP- Discharge Planning Updated by [email or web address]: Brigida Calvert on 07/11/19 10:[address] LATE ENTRY - 07/10/19 Patient Name: VALORIE WILHELM Admission Status: ER Accout number: [id number] Admission Date: 07-08-2019 : 1960 Admission Diagnosis: Attending: JONATHAN ADAM Current LOS: 2 Anticipated DC Date: Planned Disposition: Home Primary Insurance: UNINSURED DISCOUNT PLAN Discharge Planning Comments: CM met with patient at bedside after explaining CM role and obtaining verbal consent. Patient lives at home alone where he is independent with his care and plans to return there upon discharge. Patient feels this would be a safe discharge. CM discussed availability / needs of home health and medical equipment. Patient denies any discharge needs at this time. Patient states he will have his family drive him home upon discharge. CM will continue to follow and assist as needed with discharge planning / needs. Board Handler: Brigida GUSMAN - Discharge Planning Initial Assessment Updated by [email or web address]: Brigida Calvert on 07/11/19 11:45 am * Is the patient Alert and Oriented? Yes * How many steps to enter\exit or inside your home? * PCP NO PCP * [facility]acy [facility] * Preadmission Environment Home Alone * ADLs Independent * Equipment None * List name and contact numbers for known caregivers / representatives who currently or will assist patient after discharge: YAAKOV WILHELM - [facility] - [phone] * Verbal permission to speak to the caregivers and representatives has been obtained from the patient. Yes * Community resources currently utilized None * Additional services required to return to the preadmission environment? No * Can the patient safely return to the preadmission environment? Yes * Has this patient been hospitalized within the prior 30 days at any hospital? No Last DP export: 07/16/19 11:36 am Patient Name: VALORIE WILHELM Page [id number] at 1142 All edits/amendments must be made on the electronic document DICTATION DATE: 07/17/19 1142 QUALITY AUDITOR: PAM 07/17/19 1142 RPT#: [id number] DC DATE: STATUS: ADM IN [facility] [address] [place] [address] END OF REPORT
--- NOTE | 2019-07-17 12:02 | MORECARE ---
CASE MANAGEMENT DISCHARGE SUMMARY PATIENT: VALORIE WILHELM UNIT: [id number] ADM DATE: 07/08/19 AGE: 59 : 64 SEX: M ROOM/BED: D.2217 AUTHOR: KISHAN,DOC PHYSICIAN: REFERRING PHYSICIAN: JONATHAN ADAM MD DATE OF SERVICE: 07/17/19 Discharge Plan Patient Name: VALORIE WILHELM Facility: [facility]:[place] : 1960 Planned Disposition: Home Anticipated Discharge Date: Discharge Date: Expected LOS: Initial Reviewer: [email or web address] Initial Review Date: 07/10/2019 Generated: 07/17/19 1:01 pm Comments DCP- Discharge Planning Updated by [email or web address]: Naomy Adam on 07/17/19 10:[address] REFERRAL SENT TO [facility] FOR BOTH OF THEM TO TAKE A LOOK TO SEE IF THEY COULD HELP THE PATIENT DCP- Discharge Planning Updated by [email or web address]: Naomy Adam on 07/17/19 10:[address] SPOKE TO NILESH ABOUT NELIDA THERAPY AND THEY DO NOT DO THAT, SHE STATED THAT SHE WOULD MAKE A COUPLE OF PHONE CALLS TO SEE IF SHE CAN HELP. I [facility] ALSO [facility], AND I WILL REACH OUT TO SOME OTHER LOCAL ONES. DCP- Discharge Planning Updated by [email or web address]: Naomy Adam on 07/16/19 11:[address] I CALLED [facility] TO SEE IF THEY DID ANY NELIDA CASES. MYNOR IS WHO I SPOKE WITH AND SHE SAID THAT THEY DO NOT DO THAT. SHE DID NOT KNOW OF ANY PLACE IN [place] THAT WOULD. CM WILL CONTINUE TO FOLLOW AND ASSIST WITH DC PLANNING NEEDED DCP- Discharge Planning Updated by [email or web address]: Brigida Calvert on 07/11/19 10:[address] LATE ENTRY - 07/10/19 Patient Name: VALORIE WILHELM Admission Status: ER Accout number: [id number] Admission Date: 07-08-2019 : 1960 Admission Diagnosis: Attending: JONATHAN ADAM Current LOS: 2 Anticipated DC Date: Planned Disposition: Home Primary Insurance: UNINSURED DISCOUNT PLAN Discharge Planning Comments: CM met with patient at bedside after explaining CM role and obtaining verbal consent. Patient lives at home alone where he is independent with his care and plans to return there upon discharge. Patient feels this would be a safe discharge. CM discussed availability / needs of home health and medical equipment. Patient denies any discharge needs at this time. Patient states he will have his family drive him home upon discharge. CM will continue to follow and assist as needed with discharge planning / needs. Computer Project Manager: Brigida GUSMAN - Discharge Planning Initial Assessment Updated by [email or web address]: Brigida Calvert on 07/11/19 11:45 am * Is the patient Alert and Oriented? Yes * How many steps to enter\exit or inside your home? * PCP NO PCP * [facility] * Preadmission Environment Home Alone * ADLs Independent * Equipment None * List name and contact numbers for known caregivers / representatives who currently or will assist patient after discharge: YAAKOV WILHELM [facility] - [phone] * Verbal permission to speak to the caregivers and representatives has been obtained from the patient. Yes * Community resources currently utilized None * Additional services required to return to the preadmission environment? No * Can the patient safely return to the preadmission environment? Yes * Has this patient been hospitalized within the prior 30 days at any hospital? No External Providers External Provider: [facility] Next Contact Date: Service Request Date: Service Type: Resolution: Reviewer: Comments: External Provider: [facility] Next Contact Date: Service Request Date: Service Type: Resolution: Reviewer: Comments: Last DP export: 07/17/19 10:42 am Patient Name: VALORIE WILHELM Page [phone] at 1202 All edits/amendments must be made on the electronic document DICTATION DATE: 07/17/19 120 GLASS CUTTING MACHINE FEEDER: PAM 07/17/19 1201 RPT#: [id number] DC DATE: STATUS: ADM IN [facility] [address] [place] [address] END OF REPORT
[2019-07-17 13:31] VITALS: BP 146/77
--- NOTE | 2019-07-17 17:59 | NUR ---
OT NOTE: PT COMPLETED SUPINE TO SIT WITH MOD A. PT COMPLETED EOB SITTING WITH CGA-SBA. PT COMPLETED RUE AROM EXS AND COORDINATION ACTIVITES. PT IS PROGRESSING WITH RUE FUNCTIONAL ROM. [phone] THANK YOU,VALENTINA RUIZ
[2019-07-17 20:00] VITALS: BP 151/87
[2019-07-18] VITALS: BP 167/78
[2019-07-18 04:00] VITALS: BP 148/87
--- NOTE | 2019-07-18 04:12 | NUR ---
I have reviewed this patient and I concur with the Shift Assessment completed by the Licensed Practical Nurse today this shift.
[2019-07-18 05:19] LABS: BASOPHILS 0.4 % (0-2); HEMATOCRIT 51.2 % (42.0-54.0); HEMOGLOBIN 15.9 g/dL (13.5-17.5); IMMATURE GRANULOCYTES 0.3 % (0-5); LYMPHOCYTES 14.7 % (15-50); MCH 25.2 pg (26.0-34.0); MCHC 31.1 g/dL (31.0-37.0); MCV 81.1 fL (80.0-100.0); MEAN PLATELET VOLUME 10.5 fL (7.4-10.4); MONOCYTES 9.2 % (2-11); NEUTROPHILS 72.4 % (40-80); PLATELET COUNT 248 10x3/uL (130-400); RBC 6.31 10x6/uL (4.20-6.10); RDW 16.3 % (11.5-14.5); WBC 11.2 10x3/uL (4.8-10.8)
[2019-07-18 05:38] LABS: CALCIUM 8.9 mg/dL (8.5-10.1); CARBON DIOXIDE 29.6 mmol/L (21.0-32.0); CREATININE - SERUM 1.1 mg/dL (0.6-1.3); MAGNESIUM - SERUM 2.3 mg/dL (1.8-2.4); PHOSPHOROUS 3.8 mg/dL (2.5-4.9); POTASSIUM - SERUM 3.6 mmol/L (3.5-5.1)
--- NOTE | 2019-07-18 07:37 | NUR ---
ALERT AND ORIENTED. LUNGS CLEAR BILATERALLY. HEART SOUNDS S1 AND S2 HEARD IN ALL MENJIVAR. BOWEL SOUNDS ACTIVE X 4. IV TO RIGHT HAND PATENT WITHOUT REDNESS. WEBB PATENT. DENIES NEEDS. BED LOW. CALL SANON AND PERSONAL ITEMS IN REACH. WILL CONTINUE TO MONITOR.
--- NOTE | 2019-07-18 07:48 | MORECARE ---
CASE MANAGEMENT DISCHARGE SUMMARY PATIENT: VALORIE WILHELM UNIT: [id number] ADM DATE: 07/08/19 AGE: 59 : 64 SEX: M ROOM/BED: D.2217 AUTHOR: KISHAN,DOC PHYSICIAN: REFERRING PHYSICIAN: JONATHAN ADAM MD DATE OF SERVICE: 07/18/19 Discharge Plan Patient Name: VALORIE WILHELM Facility: [facility]:[place] : 1960 Planned Disposition: Home Anticipated Discharge Date: Discharge Date: Expected LOS: Initial Reviewer: [email or web address] Initial Review Date: 07/10/2019 Generated: 07/18/19 8:47 am Comments DCP- Discharge Planning Updated by [email or web address]: Naomy Adam on 07/18/19 6:[address] LATE ENTRY: 07/17/19 @ 1500 [place] WITH [facility] HERE TO SEE PATIENT, SHE WILL REACH OUT TO HER FACILITIES TO SEE IF THEY CAN HELP. I WILL SEND CLINICALS TO HER DCP- Discharge Planning Updated by [email or web address]: Naomy Adam on 07/17/19 10:[address] [facility] TO SEE IF THEY COULD HELP THE PATIENT DCP- Discharge Planning Updated by [id number]: Naomy Adam on 07/17/19 10:[address] SPOKE TO NILESH ABOUT NELIDA THERAPY AND THEY DO NOT DO THAT, SHE STATED THAT SHE WOULD MAKE A COUPLE OF PHONE CALLS TO SEE IF SHE CAN HELP. I HAVE ALSO REACHED OUT TO MARITZA WITH JAMSHID BENDER WITH [facility], AND I WILL REACH OUT TO SOME OTHER LOCAL ONES. DCP- Discharge Planning Updated by [email or web address]: Naomy Adam on 07/16/19 11:[address] I CALLED [facility] TO SEE IF THEY DID ANY NELIDA CASES. MYNOR IS WHO I SPOKE WITH AND SHE SAID THAT THEY DO NOT DO THAT. SHE DID NOT KNOW OF ANY PLACE IN [place] THAT WOULD. CM WILL CONTINUE TO FOLLOW AND ASSIST WITH DC PLANNING NEEDED DCP- Discharge Planning Updated by [email or web address]: Brigida Calvert on 07/11/19 10:[address] LATE ENTRY - 07/10/19 Patient Name: VALORIE WILHELM Admission Status: ER Accout number: [id number] Admission Date: 07-08-2019 : 1960 Admission Diagnosis: Attending: JONATHAN ADAM Current LOS: 2 Anticipated DC Date: Planned Disposition: Home Primary Insurance: UNINSURED DISCOUNT PLAN Discharge Planning Comments: CM met with patient at bedside after explaining CM role and obtaining verbal consent. Patient lives at home alone where he is independent with his care and plans to return there upon discharge. Patient feels this would be a safe discharge. CM discussed availability / needs of home health and medical equipment. Patient denies any discharge needs at this time. Patient states he will have his family drive him home upon discharge. CM will continue to follow and assist as needed with discharge planning / needs. Tax Compliance Manager: Brigida GUSMAN - Discharge Planning Initial Assessment Updated by [email or web address]: Brigida Calvert on 07/11/19 11:45 am * Is the patient Alert and Oriented? Yes * How many steps to enter\exit or inside your home? * PCP NO PCP * [facility] * Preadmission Environment Home Alone * ADLs Independent * Equipment None * List name and contact numbers for known caregivers / representatives who currently or will assist patient after discharge: YAAKOV WILHELM - [facility] - [phone] * Verbal permission to speak to the caregivers and representatives has been obtained from the patient. Yes * Community resources currently utilized None * Additional services required to return to the preadmission environment? No * Can the patient safely return to the preadmission environment? Yes * Has this patient been hospitalized within the prior 30 days at any hospital? No External Providers External Provider: [facility] Next Contact Date: Service Request Date: Service Type: Resolution: Reviewer: Comments: Last DP export: 07/17/19 11:01 am Patient Name: VALORIE WILHELM Page [phone] at 0748 All edits/amendments must be made on the electronic document DICTATION DATE: 07/18/19746 INFORMATION SPECIALIST: PAM 07/18/19746 RPT#: [id number] DC DATE: STATUS: ADM IN [facility] [address] [place] [address] END OF REPORT
--- NOTE | 2019-07-18 09:37 | NUR ---
PATIENT FULLY ALERT AND ORIENTED. BED ALARM REFUSAL SIGNED WITH LEFT HAND D/T RIGHT HAND WEAKNESS.
[2019-07-18 09:53] VITALS: BP 158/93
--- NOTE | 2019-07-18 10:48 | NUR ---
NUTRITION F/U PT REMAINS IN ISOLATION. NURSING REPORTS PT WITH ~50 TO 75% INTAKE RECENT MEALS. MECH SOFT, NECTAR THICK LIQUIDS. WILL CONTINUE TO PROVIDE DIET, MONITOR PO INTAKE. RD FOLLOWING
[2019-07-18 13:11] VITALS: BP 142/74
--- NOTE | 2019-07-18 15:23 | NUR ---
OT NOTE: PT PERFORMED WELL TODAY. BED MOB WITH MOD ASSIST; ABLE TO PERFORM SIT TO STAND WITH MOD ASSIST; MAX CUES FOR WT SHIFTING TOWARDS L SIDE. PT WITH CONTINUAL REPORTS OF DIZZINESS AND NAUSEA AND WANTED TO LIE DOWN. EXPLAINED THAT IT WOULD IMPROVE BUT DUE TO LOCATION OF STROKE, HE WOULD NEED TO WORK THROUGH THIS. PROVIDED COLD CLOTH..EDUCATED PT TO LOOK AT ONE AREA ON WALL; APPLIED OT HE REPORTED THAT HE COULD NOT STAND THE SMELL (PT HAD BM AND RQUIERD TOTAL ASSIST FOR HYGIENE.)..ON SECOND ATTEMPT, PT WAS ABLE TO STAND FOR APPROX 3-4 MIN WITH CUES FOR ENCOURAGEMENT AND WT SHIFT. UNABLE TO ADVANCE FOOT FOR GAIT TODAY, BUT WILL ATTEMPT TOMORROW. PRACTICED EOB SITTING..STATIC WITH SPV..MOD ASSIST FOR DYNAMIC..PERFORMED SEVERAL GROSS MOTOR AND AROM EXS FOR R UE. DILLON FARRIS, OTR/L [phone]
[2019-07-18 17:02] VITALS: BP 139/77
--- NOTE | 2019-07-18 17:50 | NUR ---
OT NOTE: PT COMPLETED RUE REACHING AND GRASP/RELEASE ACTIVITIES. PT COMPLETED PT COMPLETED BED MOB TASKS WITH MIN A. PT COMPLETED FACE AND HYGIENE WITH SETUP. [phone] THANK YOU,VALENTINA RUIZ
[2019-07-18 20:00] VITALS: BP 125/72
[2019-07-19] VITALS: BP 146/76
--- NOTE | 2019-07-19 02:00 | NUR ---
REC'D WALKING ROUNDS CHGE OF SHIFT.SUPINE POSITION. EYES CLOSED RESP. DEEP AND EVEN. AROUSES EASILY TO VERBAL STIMULI.WEBB PATENTAND DRAINING CONCENTRATED URINE.WILL CONTINUE TO MONITOR FOR ANY CHGES IN CURRENT STATUS AND FOLLOW CURRENT PLAN OF CARE.CONTACT ISOLATION REMAINS IN PROGRESS.
[2019-07-19 04:00] VITALS: BP 140/75
[2019-07-19 06:44] LABS: BASOPHILS 0.3 % (0-2); EOSINOPHILS 3.9 % (0-7); HEMATOCRIT 56.4 % (42.0-54.0); HEMOGLOBIN 17.3 g/dL (13.5-17.5); IMMATURE GRANULOCYTES 0.4 % (0-5); LYMPHOCYTES 16.8 % (15-50); MCH 25.3 pg (26.0-34.0); MCHC 30.7 g/dL (31.0-37.0); MCV 82.3 fL (80.0-100.0); MEAN PLATELET VOLUME 10.4 fL (7.4-10.4); MONOCYTES 8.4 % (2-11); NEUTROPHILS 70.2 % (40-80); PLATELET COUNT 218 10x3/uL (130-400); RDW 16.8 % (11.5-14.5)
[2019-07-19 06:57] LABS: RBC 6.85 10x6/uL (4.20-6.10)
[2019-07-19 07:03] LABS: CALC OSMOLALITY 285 mosm/kg (275-300); CALCIUM 9.4 mg/dL (8.5-10.1); CARBON DIOXIDE 30.9 mmol/L (21.0-32.0); CHLORIDE - SERUM 102 mmol/L (98-107); GLUCOSE 95 mg/dL (74-106); MAGNESIUM - SERUM 2.7 mg/dL (1.8-2.4); PHOSPHOROUS 4.3 mg/dL (2.5-4.9); SODIUM 140 mmol/L (136-145); UREA NITROGEN 31 mg/dL (7-18); eGFR NON AFRICAN AMERICAN 82 mL/min (90-120)
[2019-07-19 07:11] LABS: POTASSIUM - SERUM 4.2 mmol/L (3.5-5.1)
--- NOTE | 2019-07-19 07:49 | NUR ---
ALERT AND ORIENTED. LUNGS WITH BUL WHEEZES. HEART SOUNDS S1 AND S2 HEARD IN ALL MENJIVAR. BOWEL SOUNDS ACTIVE X 4. SKIN INTACT WITHOUT REDNESS. IV TO RIGHT HAND PATENT WITHOUT REDNESS. DENIES PAIN. DENIES NEEDS. BED LOW. CALL SANON AND PERSONAL ITEMS IN REACH. BED ALARM REFUSAL ON CHART. WILL CONTINUE TO MONITOR.
--- NOTE | 2019-07-19 08:08 | NUR ---
I have reviewed this patient and I concur with the Shift Assessment completed by the Licensed Practical Nurse today this shift.
[2019-07-19 09:34] VITALS: BP 144/91
--- NOTE | 2019-07-19 09:43 | MORECARE ---
CASE MANAGEMENT DISCHARGE SUMMARY PATIENT: VALORIE WILHELM UNIT: [id number] ADM DATE: 07/08/19 AGE: 59 : 64 SEX: M ROOM/BED: D.2217 AUTHOR: KISHAN,DOC PHYSICIAN: REFERRING PHYSICIAN: JONATHAN ADAM MD DATE OF SERVICE: 07/19/19 Discharge Plan Patient Name: VALORIE WILHELM Facility: [facility]:[place] : 1960 Planned Disposition: Home Anticipated Discharge Date: Discharge Date: Expected LOS: Initial Reviewer: [email or web address] Initial Review Date: 07/10/2019 Generated: 07/19/19 10:43 am Comments DCP- Discharge Planning Updated by [email or web address]: Naomy Adam on 07/19/19 8:[address] SPOKE WITH PATIENT THIS MORNING ABOUT HIS DISCHARGE PLAN AND WHAT WE WERE TRYING TO DO TO HELP HIM. HE IS THANKFUL FOR WHATEVER HELP WE CAN FIND HIM AND KNOWS THAT HE MIGHT EVEN HAVE TO GO OUTSIDE OF [place]. HE IS OK WITH THAT TOO. I EXPLAINED TO HIM THAT WE WERE SENDING AN EMAIL TO FACILITIES ASKING FOR THERAPY IF HE WAS OK WITH THIS & HE GAVE PERMISSION FOR US TO HELP HIM MUCH WE CAN DO AND AGAIN HE WAS VERY THANKFUL DCP- Discharge Planning Updated by [id number]: Naomy Adma on 07/18/19 6:[address] LATE ENTRY: 07/17/19 @ 1500 [place] WITH [facility] HERE TO SEE PATIENT, SHE WILL REACH OUT TO HER FACILITIES TO SEE IF THEY CAN HELP. I WILL SEND CLINICALS TO HER DCP- Discharge Planning Updated by [email or web address]: Naomy Adam on 07/17/19 10:[address] REFERRAL SENT TO [facility] FOR BOTH OF THEM TO TAKE A LOOK TO SEE IF THEY COULD HELP THE PATIENT DCP- Discharge Planning Updated by [email or web address]: Naomy Adam on 07/17/19 10:[address] SPOKE TO NILESH ABOUT NELIDA THERAPY AND THEY DO NOT DO THAT, SHE STATED THAT SHE WOULD MAKE A COUPLE OF PHONE CALLS TO SEE IF SHE CAN HELP. I HAVE ALSO REACHED OUT TO TERE WITH [facility], JAMSHID WITH [facility], AND I WILL REACH OUT TO SOME OTHER LOCAL ONES. DCP- Discharge Planning Updated by [email or web address]: Naomy Adam on 07/16/19 11:[address] [facility] DID ANY NELIDA CASES. MYNOR IS WHO I SPOKE WITH AND SHE SAID THAT THEY DO NOT DO THAT. SHE DID NOT KNOW OF ANY PLACE IN [place] THAT WOULD. CM WILL CONTINUE TO FOLLOW AND ASSIST WITH DC PLANNING NEEDED DCP- Discharge Planning Updated by [id number]: Brigida Calvert on 07/11/19 10:[address] LATE ENTRY - 07/10/19 Patient Name: VALORIE WILHELM Admission Status: ER Accout number: [id number] Admission Date: 07-08-2019 : 1960 Admission Diagnosis: Attending: JONATHAN ADAM Current LOS: 2 Anticipated DC Date: Planned Disposition: Home Primary Insurance: UNINSURED DISCOUNT PLAN Discharge Planning Comments: CM met with patient at bedside after explaining CM role and obtaining verbal consent. Patient lives at home alone where he is independent with his care and plans to return there upon discharge. Patient feels this would be a safe discharge. CM discussed availability / needs of home health and medical equipment. Patient denies any discharge needs at this time. Patient states he will have his family drive him home upon discharge. CM will continue to follow and assist as needed with discharge planning / needs. Aniline Press Worker: Brigida Calvert DCPIA - Discharge Planning Initial Assessment Updated by [email or web address]: Brigida Calvert on 07/11/19 11:45 am * Is the patient Alert and Oriented? Yes * How many steps to enter\exit or inside your home? * PCP NO PCP * [facility]acy [facility] * Preadmission Environment Home Alone * ADLs Independent * Equipment None * List name and contact numbers for known caregivers / representatives who currently or will assist patient after discharge: YAAKOV WILHELM - [facility] - [phone] * Verbal permission to speak to the caregivers and representatives has been obtained from the patient. Yes * Community resources currently utilized None * Additional services required to return to the preadmission environment? No * Can the patient safely return to the preadmission environment? Yes * Has this patient been hospitalized within the prior 30 days at any hospital? No Last DP export: 07/18/19 6:48 am Patient Name: VALORIE WILHELM Page [phone] at 0943 All edits/amendments must be made on the electronic document DICTATION DATE: 07/19/19942 DEVELOPMENTAL ELECTRONICS ASSEMBLER: PAM 07/19/19942 RPT#: [id number] DC DATE: STATUS: ADM IN [facility] [address] [place] [address] END OF REPORT
--- NOTE | 2019-07-19 11:42 | MORECARE ---
CASE MANAGEMENT DISCHARGE SUMMARY PATIENT: VALORIE WILHELM UNIT: [id number] ADM DATE: 07/08/19 AGE: 59 : 64 SEX: M ROOM/BED: D.2217 AUTHOR: KISHAN,DOC PHYSICIAN: REFERRING PHYSICIAN: JONATHAN ADAM MD DATE OF SERVICE: 07/19/19 Discharge Plan Patient Name: VALORIE WILHELM Facility: [facility]:[place] : 1960 Planned Disposition: Home Anticipated Discharge Date: Discharge Date: Expected LOS: Initial Reviewer: [email or web address] Initial Review Date: 07/10/2019 Generated: 07/19/19 12:41 pm Comments DCP- Discharge Planning Updated by [id number]: Naomy Adam on 07/19/19 10:[address] Yanna with [facility] said that all of her facilities were not going to be able to help with therapy. Will continue to try. DCP- Discharge Planning Updated by [email or web address]: Naomy Adam on 07/19/19 8:[address] SPOKE WITH PATIENT THIS MORNING ABOUT HIS DISCHARGE PLAN AND WHAT WE WERE TRYING TO DO TO HELP HIM. HE IS THANKFUL FOR WHATEVER HELP WE CAN FIND HIM AND KNOWS THAT HE MIGHT EVEN HAVE TO GO OUTSIDE OF [place]. HE IS OK WITH THAT TOO. I EXPLAINED TO HIM THAT WE WERE SENDING AN EMAIL TO FACILITIES ASKING FOR THERAPY IF HE WAS OK WITH THIS & HE GAVE PERMISSION FOR US TO HELP HIM MUCH WE CAN DO AND AGAIN HE WAS VERY THANKFUL DCP- Discharge Planning Updated by [id number]: Naomy Adam on 07/18/19 6:[address] LATE ENTRY: 07/17/19 @ 1500 [place] [facility] HERE TO SEE PATIENT, SHE WILL REACH OUT TO HER FACILITIES TO SEE IF THEY CAN HELP. I WILL SEND CLINICALS TO HER DCP- Discharge Planning Updated by [email or web address]: Naomy Adam on 07/17/19 10:[address] REFERRAL SENT TO [place] [facility] FOR BOTH OF THEM TO TAKE A LOOK TO SEE IF THEY COULD HELP THE PATIENT DCP- Discharge Planning Updated by [email or web address]: Naomy Adam on 07/17/19 10:[address] SPOKE TO NILESH ABOUT [facility] AND THEY DO NOT DO THAT, SHE STATED THAT SHE WOULD MAKE A COUPLE OF PHONE CALLS TO SEE IF SHE CAN HELP. I HAVE ALSO REACHED OUT TO YANNA WITH [facility], JAMSHID WITH [facility], AND I WILL REACH OUT TO SOME OTHER LOCAL ONES. DCP- Discharge Planning Updated by [email or web address]: Naomy Adam on 07/16/19 11:[address] [facility] IF [facility] DID ANY NELIDA CASES. MYNOR IS WHO I SPOKE WITH AND SHE SAID THAT THEY DO NOT DO THAT. SHE DID NOT KNOW OF ANY PLACE IN [place] THAT WOULD. CM WILL CONTINUE TO FOLLOW AND ASSIST WITH DC PLANNING NEEDED DCP- Discharge Planning Updated by [email or web address]: Brigida Calvert on 07/11/19 10:[address] LATE ENTRY - 07/10/19 Patient Name: VALORIE WILHELM Admission Status: ER Accout number: [id number] Admission Date: 07-08-2019 : 1960 Admission Diagnosis: Attending: JONATHAN ADAM Current LOS: 2 Anticipated DC Date: Planned Disposition: Home Primary Insurance: UNINSURED DISCOUNT PLAN Discharge Planning Comments: CM met with patient at bedside after explaining CM role and obtaining verbal consent. Patient lives at home alone where he is independent with his care and plans to return there upon discharge. Patient feels this would be a safe discharge. CM discussed availability / needs of home health and medical equipment. Patient denies any discharge needs at this time. Patient states he will have his family drive him home upon discharge. CM will continue to follow and assist as needed with discharge planning / needs. Wire Spinner: Brigida Calvert DCPIA - Discharge Planning Initial Assessment Updated by [email or web address]: Brigida Calvert on 07/11/19 11:45 am * Is the patient Alert and Oriented? Yes * How many steps to enter\exit or inside your home? * PCP NO PCP * [facility]acy [facility] * Preadmission Environment Home Alone * ADLs Independent * Equipment None * List name and contact numbers for known caregivers / representatives who currently or will assist patient after discharge: YAAKOV WILHELM - SON - [phone] * Verbal permission to speak to the caregivers and representatives has been obtained from the patient. Yes * Community resources currently utilized None * Additional services required to return to the preadmission environment? No * Can the patient safely return to the preadmission environment? Yes * Has this patient been hospitalized within the prior 30 days at any hospital? No Last DP export: 07/19/19 8:43 am Patient Name: VALORIE WILHELM Page [id number] at 1142 All edits/amendments must be made on the electronic document DICTATION DATE: 07/19/19 114 DATA WAREHOUSE ADMINISTRATOR: PAM 07/19/19 1141 RPT#: [id number] DC DATE: STATUS: ADM IN [facility] [address] [place] [address] END OF REPORT
--- NOTE | 2019-07-19 13:03 | MORECARE ---
CASE MANAGEMENT DISCHARGE SUMMARY PATIENT: VALORIE WILHELM UNIT: [id number] ADM DATE: 07/08/19 AGE: 59 : 64 SEX: M ROOM/BED: D.2217 AUTHOR: KISHAN,DOC PHYSICIAN: REFERRING PHYSICIAN: JONATHAN ADAM MD DATE OF SERVICE: 07/19/19 Discharge Plan Patient Name: VALORIE WILHELM Facility: [facility]:[place] : 1960 Planned Disposition: Home Anticipated Discharge Date: Discharge Date: Expected LOS: Initial Reviewer: [email or web address] Initial Review Date: 07/10/2019 Generated: 07/19/19 2:02 pm Comments DCP- Discharge Planning Updated by [email or web address]: Naomy Adam on 07/19/19 12:[address] LILIA, WITH [facility] CALLED AND STATED THAT THEY WOULD TAKE A LOOK AT HIM. I HAVE FAXED CLINICALS TO [phone] DCP- Discharge Planning Updated by [email or web address]: Naomy Adam on 07/19/19 10:[address] Beattie with [facility] said that all of her facilities were not going to be able to help with therapy. Will continue to try. DCP- Discharge Planning Updated by [email or web address]: Naomy Adam on 07/19/19 8:[address] SPOKE WITH PATIENT THIS MORNING ABOUT HIS DISCHARGE PLAN AND WHAT WE WERE TRYING TO DO TO HELP HIM. HE IS THANKFUL FOR WHATEVER HELP WE CAN FIND HIM AND KNOWS THAT HE MIGHT EVEN HAVE TO GO OUTSIDE OF [place]. HE IS OK WITH THAT TOO. I EXPLAINED TO HIM THAT WE WERE SENDING AN EMAIL TO FACILITIES ASKING FOR THERAPY IF HE WAS OK WITH THIS & HE GAVE PERMISSION FOR US TO HELP HIM MUCH WE CAN DO AND AGAIN HE WAS VERY THANKFUL DCP- Discharge Planning Updated by [email or web address]: Naomy Adam on 07/18/19 6:[address] LATE ENTRY: 07/17/19 @ 1500 [place] [facility] HERE TO SEE PATIENT, SHE WILL REACH OUT TO HER FACILITIES TO SEE IF THEY CAN HELP. I WILL SEND CLINICALS TO HER DCP- Discharge Planning Updated by [email or web address]: Naomy Adam on 07/17/19 10:[address] [facility] TO TA[facility] A LOOK TO SEE IF THEY COULD HELP THE PATIENT DCP- Discharge Planning Updated by [email or web address]: Naomy Adam on 07/17/19 10:[address] SPOKE TO NILESH ABOUT [facility]ER[facility] AND THEY DO NOT DO THAT, SHE STATED THAT SHE WOULD MAKE A COUPLE OF PHONE CALLS TO SEE IF SHE CAN HELP. I HAVE ALSO REACHED OUT TO MARITZA WITH [facility], JAMSHID WITH [facility], AND I WILL REACH OUT TO SOME OTHER LOCAL ONES. DCP- Discharge Planning Updated by [email or web address]: Naomy Adam on 07/16/19 11:[address] [facility] TO SEE IF THEY DID ANY NELIDA CASES. MYNOR IS WHO I SPOKE WITH AND SHE SAID THAT THEY DO NOT DO THAT. SHE DID NOT KNOW OF ANY PLACE IN [place] THAT WOULD. CM WILL CONTINUE TO FOLLOW AND ASSIST WITH DC PLANNING NEEDED DCP- Discharge Planning Updated by [email or web address]: Brigida Calvert on 07/11/19 10:[address] LATE ENTRY - 07/10/19 Patient Name: VALORIE WILHELM Admission Status: ER Accout number: [id number] Admission Date: 07-08-2019 : 1960 Admission Diagnosis: Attending: JONATHAN ADAM Current LOS: 2 Anticipated DC Date: Planned Disposition: Home Primary Insurance: UNINSURED DISCOUNT PLAN Discharge Planning Comments: CM met with patient at bedside after explaining CM role and obtaining verbal consent. Patient lives at home alone where he is independent with his care and plans to return there upon discharge. Patient feels this would be a safe discharge. CM discussed availability / needs of home health and medical equipment. Patient denies any discharge needs at this time. Patient states he will have his family drive him home upon discharge. CM will continue to follow and assist as needed with discharge planning / needs. [employer]: Brigida Calvert DCPIA - Discharge Planning Initial Assessment Updated by [email or web address]: Brigida Calvert on 07/11/19 11:45 am * Is the patient Alert and Oriented? Yes * How many steps to enter\exit or inside your home? * PCP NO PCP * [facility]acy [facility] * Preadmission Environment Home Alone * ADLs Independent * Equipment None * List name and contact numbers for known caregivers / representatives who currently or will assist patient after discharge: YAAKOV WILHELM - [facility] - [phone] * Verbal permission to speak to the caregivers and representatives has been obtained from the patient. Yes * Community resources currently utilized None * Additional services required to return to the preadmission environment? No * Can the patient safely return to the preadmission environment? Yes * Has this patient been hospitalized within the prior 30 days at any hospital? No External Providers External Provider: OTHER-OTHER Next Contact Date: Service Request Date: Service Type: Resolution: Reviewer: Comments: Last DP export: 07/19/19 10:42 am Patient Name: VALORIE WILHELM Page [phone] at 1303 All edits/amendments must be made on the electronic document DICTATION DATE: 07/19/19 1303 PRE SALES TECHNICAL CONSULTANT: PAM 07/19/19 1303 RPT#: [id number] DC DATE: STATUS: ADM IN [facility] [address] [place] [address] END OF REPORT
[2019-07-19 13:04] VITALS: BP 106/70
--- NOTE | 2019-07-19 15:45 | NUR ---
OT NOTE: PT DID VERY WELL TODAY. BED MOB WITH MOD ASSIST; STATIC SITTING BALANCE ON EOB WAS GOOD. MIN ASSIST TO SOFÍA GOWN. PT REMAINS INCONT OF BOWEL AND REQUIRED TOTAL ASSIST FOR PERINEAL CARE AND HYGIENE. STANDING WITH WALKER WITH MOD ASSIST X 2; TRANSFERRED FROM BED TO CHAIR IN AM WITH MOD ASSIST TO WT SHIFT TO LEFT AND MAX ASSIST TO ADVANCE R FOOT; ALSO REQUIRED MOD ASSIST TO LOCK R LEG WITH ADVANCEMENT OF L FOOT. STAND TO SIT WITH MAX ASSIST. PT TOLERATED SITTING UP IN CHAIR FOR GREATER THAN 3 HRS. WHEN ASSISTING PT BACK TO BED, HE DID MUCH BETTER. ABLE TO ADVANCE R FOOT WITH MIN ASSIST AND ABLE TO MAINTAIN R KNEE IN EXTENSION WITHOUT ASSIST WHILE MOVING L FOOT. TRANSFER BACK TO BED WAS MUCH BETTER. AROM EXS WITH R UE. DILLON FARRSI,OTR/L [id number]
--- NOTE | 2019-07-19 16:17 | MORECARE ---
CASE MANAGEMENT DISCHARGE SUMMARY PATIENT: VALORIE WILHELM UNIT: [id number] ADM DATE: 07/08/19 AGE: 59 : 64 SEX: M ROOM/BED: D.2217 AUTHOR: KISHAN,DOC PHYSICIAN: REFERRING PHYSICIAN: JONATHAN ADAM MD DATE OF SERVICE: 07/19/19 Discharge Plan Patient Name: VALORIE WILHELM Facility: [facility]:[place] : 1960 Planned Disposition: Home Anticipated Discharge Date: Discharge Date: Expected LOS: Initial Reviewer: [email or web address] Initial Review Date: 07/10/2019 Generated: 07/19/19 5:16 pm DCP- Discharge Planning Updated by [email or web address]: Naomy Adam on 07/19/19 3:[address] LILIA WITH [facility] [place] CALLED AND STATED THAT THEY WOULD NOT BE ABLE TO HELP HIM. DCP- Discharge Planning Updated by [email or web address]: Naomy Adam on 07/19/19 12:[address] LILIA, WITH [facility] CALLED AND STATED THAT THEY WOULD TAKE A LOOK AT HIM. I HAVE FAXED CLINICALS TO [phone] DCP- Discharge Planning Updated by [email or web address]: Naomy Adam on 07/19/19 10:[address] [place] with [facility] said that all of her facilities were not going to be able to help with therapy. Will continue to try. DCP- Discharge Planning Updated by [email or web address]: Naomy Adam on 07/19/19 8:[address] SPOKE WITH PATIENT THIS MORNING ABOUT HIS DISCHARGE PLAN AND WHAT WE WERE TRYING TO DO TO HELP HIM. HE IS THANKFUL FOR WHATEVER HELP WE CAN FIND HIM AND KNOWS THAT HE MIGHT EVEN HAVE TO GO OUTSIDE OF [place]. HE IS OK WITH THAT TOO. I EXPLAINED TO HIM THAT WE WERE SENDING AN EMAIL TO FACILITIES ASKING FOR THERAPY IF HE WAS OK WITH THIS & HE GAVE PERMISSION FOR US TO HELP HIM MUCH WE CAN DO AND AGAIN HE WAS VERY THANKFUL DCP- Discharge Planning Updated by [id number]: Naomy Adam on 07/18/19 6:[address] LATE ENTRY: 07/17/19 @ 1500 [place] [facility] HERE TO SEE PATIENT, SHE WILL REACH OUT TO HER FACILITIES TO SEE IF THEY CAN HELP. I WILL SEND CLINICALS TO HER DCP- Discharge Planning Updated by [email or web address]: Naomy Jair on 07/17/19 10:[address] REFERRAL SENT TO [facility] FOR BOTH OF THEM TO TAKE A LOOK TO SEE IF THEY COULD HELP THE PATIENT DCP- Discharge Planning Updated by [email or web address]: Naomy Adam on 07/17/19 10:[address] SPOKE TO NILESH ABOUT [facility]ELIDA THERAPY AND THEY DO NOT DO THAT, SHE STATED THAT SHE WOULD MAKE A COUPLE OF PHONE CALLS TO SEE IF SHE CAN HELP. I HAVE ALSO REACHED OUT TO MARITZA WITH [facility], JAMSHID WITH [facility], AND I WILL REACH OUT TO SOME OTHER LOCAL ONES. DCP- Discharge Planning Updated by [email or web address]: Naomy Adam on 07/16/19 11:[address] [facility] TO SEE IF THEY DID ANY NELIDA CASES. MYNOR IS WHO I SPOKE WITH AND SHE SAID THAT THEY DO NOT DO THAT. SHE DID NOT KNOW OF ANY PLACE IN [place] THAT WOULD. CM WILL CONTINUE TO FOLLOW AND ASSIST WITH DC PLANNING NEEDED DCP- Discharge Planning Updated by [email or web address]: Brigida Calvert on 07/11/19 10:[address] LATE ENTRY - 07/10/19 Patient Name: VALORIE WILHELM Admission Status: ER Accout number: [id number] Admission Date: 07-08-2019 : 1960 Admission Diagnosis: Attending: JONATHAN ADAM Current LOS: 2 Anticipated DC Date: Planned Disposition: Home Primary Insurance: UNINSURED DISCOUNT PLAN Discharge Planning Comments: CM met with patient at bedside after explaining CM role and obtaining verbal consent. Patient lives at home alone where he is independent with his care and plans to return there upon discharge. Patient feels this would be a safe discharge. CM discussed availability / needs of home health and medical equipment. Patient denies any discharge needs at this time. Patient states he will have his family drive him home upon discharge. CM will continue to follow and assist as needed with discharge planning / needs. Heel Brusher: Brigida Calvert DCPIA - Discharge Planning Initial Assessment Updated by [email or web address]: Brigida Calvert on 07/11/19 11:45 am * Is the patient Alert and Oriented? Yes * How many steps to enter\exit or inside your home? * PCP NO PCP * [facility]acy [facility] * Preadmission Environment Home Alone * ADLs Independent * Equipment None * List name and contact numbers for known caregivers / representatives who currently or will assist patient after discharge: Y[facility]KOV WILHELM [facility] - [phone] * Verbal permission to speak to the caregivers and representatives has been obtained from the patient. Yes * Community resources currently utilized None * Additional services required to return to the preadmission environment? No * Can the patient safely return to the preadmission environment? Yes * Has this patient been hospitalized within the prior 30 days at any hospital? No Last DP export: 07/19/19 12:03 pm Patient Name: VALORIE WILHELM Page [id number] at 1617 All edits/amendments must be made on the electronic document DICTATION DATE: 07/19/191615 JOURNEYMAN SHEET METAL WORKER: PAM 07/19/191615 RPT#: [id number] DC DATE: STATUS: ADM IN [facility] [address] [place] [address] END OF REPORT
--- NOTE | 2019-07-19 17:23 | NUR ---
OT NOTE: PT COMPLETED CHAIR TO BED TRANSFER USING RW WITH MIN TO MOD A. PT EXHIBITED A DECREASED RUE CONTINUOUS MINING MACHINE LODE MINER FOR WALKER MANAGEMENT. PT COMPLETED STANDING WITH MIN A. PT COMPLETED SIT TO SUPINE WITH MIN-MOD A. PT RUE GRASP AND RELEASE TECHNIQUES FOR INCREASED I WITH WALKER MANAGEMENT. PT COMPLETED WT BEARING THROUGH RUE. PT COMPLETED UB HYGIENE TASKS USING RUE WITH MIN A. [phone] THANK YOU, VALENTINA RUIZ
[2019-07-19 18:07] VITALS: BP 137/81
[2019-07-19 20:00] VITALS: BP 139/70
[2019-07-20] VITALS: BP 150/75
[2019-07-20 04:00] VITALS: BP 138/82
[2019-07-20 04:48] LABS: BASOPHILS 0.7 % (0-2); EOSINOPHILS 4.8 % (0-7); HEMATOCRIT 51.8 % (42.0-54.0); IMMATURE GRANULOCYTES 0.2 % (0-5); LYMPHOCYTES 19.3 % (15-50); MCH 25.6 pg (26.0-34.0); MCHC 30.9 g/dL (31.0-37.0); MEAN PLATELET VOLUME 10.4 fL (7.4-10.4); MONOCYTES 8.1 % (2-11); NEUTROPHILS 66.9 % (40-80); PLATELET COUNT 243 10x3/uL (130-400); RBC 6.24 10x6/uL (4.20-6.10); RDW 16.2 % (11.5-14.5); WBC 10.8 10x3/uL (4.8-10.8)
[2019-07-20 05:05] LABS: ANION GAP 8.5 mmol/L (8-16); BILIRUBIN - TOTAL 0.33 mg/dL (0.2-1.3); CALCIUM 8.7 mg/dL (8.5-10.1); CARBON DIOXIDE 33.2 mmol/L (21.0-32.0); CREATININE - SERUM 1.2 mg/dL (0.6-1.3); POTASSIUM - SERUM 3.7 mmol/L (3.5-5.1); PROTEIN - SERUM 8.7 g/dL (6.4-8.2)
[2019-07-20 08:43] VITALS: BP 139/75
--- NOTE | 2019-07-20 09:00 | NUR ---
ASSESSMENT PER FLOW SHEET. PT IS WITHOUT DISTRESS.ISOLATION MAINTAINED.
[2019-07-20 12:12] VITALS: BP 119/71
--- NOTE | 2019-07-20 14:30 | NUR ---
SOME REDNESS AND EXCORIATION NOTED TO BILATERAL BUTTOCKS. PATIENT CLEANED,DRIED AND BUTT PASTE APPLIED. SMALL SMEARS OF STOOL NOTED. WEBB CARE PROVIDED.ISOLATION MAINTAINED
--- NOTE | 2019-07-20 16:56 | MORECARE ---
CASE MANAGEMENT DISCHARGE SUMMARY PATIENT: VALORIE WILHELM UNIT: [id number] ADM DATE: 07/08/19 AGE: 59 : 64 SEX: M ROOM/BED: D.2217 AUTHOR: KISHAN,DOC PHYSICIAN: REFERRING PHYSICIAN: JONATHAN ADAM MD DATE OF SERVICE: 07/20/19 Discharge Plan Patient Name: VALORIE WILHELM Facility: [facility]:[place] : 1960 Planned Disposition: Home Anticipated Discharge Date: Discharge Date: Expected LOS: Initial Reviewer: [email or web address] Initial Review Date: 07/10/2019 Generated: 07/20/19 5:55 pm Comments DCP- Discharge Planning Updated by [email or web address]: Naomy Adam on 07/20/19 3:[address] QUEENIE WITH [facility] CALLED AND STATED THAT THEY WOULD BE INTRESTED IT HELPING HIM. I HAVE FAXED CLINCIALS TO HER AND WILL TOUCH BASE WITH HER Tuesday. DCP- Discharge Planning Updated by [email or web address]: Naomy Adam on 07/19/19 3:[address] LILIA WITH [facility] [place] CALLED AND STATED THAT THEY WOULD NOT BE ABLE TO HELP HIM. DCP- Discharge Planning Updated by [email or web address]: Naomy Adam on 07/19/19 12:[address] LILIA, WITH [facility] CALLED AND STATED THAT THEY WOULD TAKE A LOOK AT HIM. I HAVE FAXED CLINICALS TO [phone] DCP- Discharge Planning Updated by [email or web address]: Naomy Adam on 07/19/19 10:[address] Yanna with [facility] said that all of her facilities were not going to be able to help with therapy. Will continue to try. DCP- Discharge Planning Updated by [email or web address]: Naomy Adam on 07/19/19 8:[address] SPOKE WITH PATIENT THIS MORNING ABOUT HIS DISCHARGE PLAN AND WHAT WE WERE TRYING TO DO TO HELP HIM. HE IS THANKFUL FOR WHATEVER HELP WE CAN FIND HIM AND KNOWS THAT HE MIGHT EVEN HAVE TO GO OUTSIDE OF [place]. HE IS OK WITH THAT TOO. I EXPLAINED TO HIM THAT WE WERE SENDING AN EMAIL TO FACILITIES ASKING FOR THERAPY IF HE WAS OK WITH THIS & HE GAVE PERMISSION FOR US TO HELP HIM MUCH WE CAN DO AND AGAIN HE WAS VERY THANKFUL DCP- Discharge Planning Updated by [id number]: Naomy Adam on 07/18/19 6:[address] LATE ENTRY: 07/17/19 @ 1500 YANNA WITH [facility] HERE TO SEE PATIENT, SHE WILL REACH OUT TO HER FACILITIES TO SEE IF THEY CAN HELP. I WILL SEND CLINICALS TO HER DCP- Discharge Planning Updated by [email or web address]: Naomy Adam on 07/17/19 10:[address] [facility] TO SEE IF THEY COULD HELP THE PATIENT DCP- Discharge Planning Updated by [email or web address]: Naomy Adam on 07/17/19 10:[address] SPOKE TO NILESH ABOUT NELIDA THERAPY AND THEY DO NOT DO THAT, SHE STATED THAT SHE WOULD MAKE A COUPLE OF PHONE CALLS TO SEE IF SHE CAN HELP. I HAVE ALSO REACHED OUT TO AYNNA WITH [facility], JAMSHID WITH [place], AND I WILL REACH OUT TO SOME OTHER LOCAL ONES. DCP- Discharge Planning Updated by [email or web address]: Naomy Adam on 07/16/19 11:[address] I CALLED [facility] TO SEE IF THEY DID ANY NELIDA CASES. MYNOR IS WHO I SPOKE WITH AND SHE SAID THAT THEY DO NOT DO THAT. SHE DID NOT KNOW OF ANY PLACE IN [place] THAT WOULD. CM WILL CONTINUE TO FOLLOW AND ASSIST WITH DC PLANNING NEEDED DCP- Discharge Planning Updated by [email or web address]: Brigida Calvert on 07/11/19 10:[address] LATE ENTRY - 07/10/19 Patient Name: VALORIE WILHELM Admission Status: ER Accout number: [id number] Admission Date: 07-08-2019 : 1960 Admission Diagnosis: Attending: JONATHAN ADAM Current LOS: 2 Anticipated DC Date: Planned Disposition: Home Primary Insurance: UNINSURED DISCOUNT PLAN Discharge Planning Comments: CM met with patient at bedside after explaining CM role and obtaining verbal consent. Patient lives at home alone where he is independent with his care and plans to return there upon discharge. Patient feels this would be a safe discharge. CM discussed availability / needs of home health and medical equipment. Patient denies any discharge needs at this time. Patient states he will have his family drive him home upon discharge. CM will continue to follow and assist as needed with discharge planning / needs. Dinkey Dispatcher: Brigida Calvert DCPIA - Discharge Planning Initial Assessment Updated by [email or web address]: Brigida Calvert on 07/11/19 11:45 am * Is the patient Alert and Oriented? Yes * How many steps to enter\exit or inside your home? * PCP NO PCP * [facility]acy [facility] * Preadmission Environment Home Alone * ADLs Independent * Equipment None * List name and contact numbers for known caregivers / representatives who currently or will assist patient after discharge: YAAKOV WILHELM [facility] - [phone] * Verbal permission to speak to the caregivers and representatives has been obtained from the patient. Yes * Community resources currently utilized None * Additional services required to return to the preadmission environment? No * Can the patient safely return to the preadmission environment? Yes * Has this patient been hospitalized within the prior 30 days at any hospital? No External Providers External Provider: [facility] Next Contact Date: Service Request Date: Service Type: Resolution: Reviewer: Comments: Last DP export: 07/19/19 3:17 pm Patient Name: VALORIE WILHELM Page 19571 at 1656 All edits/amendments must be made on the electronic document DICTATION DATE: 07/20/191654 DROP FORGE HAND: PAM 07/20/191654 RPT#: [id number] DC DATE: STATUS: ADM IN [facility] [address] [place] [address] END OF REPORT
[2019-07-20 17:03] VITALS: BP 115/73
--- NOTE | 2019-07-20 17:23 | NUR ---
OT NOTE: (AM SESSION) PT COMPLETED BED MOB WITH MOD A. PT COMPLETED SUPINE TO SIT WITH MOD A. PT COMPLETEDD SIT TO STAND WITH MIN A. PT COMPLETED SITTING BALANCE WITH MIN A. (PM SESSION) PT COMPLETED UB HYGIENE TASKS WITH CGA-MIN A WHILE LYING IN BED. [phone] THANK YOU,VALENTINA RUIZ
[2019-07-20 20:26] VITALS: BP 123/63
[2019-07-21 00:35] VITALS: BP 135/71
[2019-07-21 04:55] VITALS: BP 123/74
[2019-07-21 05:39] LABS: BASOPHILS 0.5 % (0-2); EOSINOPHILS 4.2 % (0-7); HEMATOCRIT 50.8 % (42.0-54.0); HEMOGLOBIN 15.7 g/dL (13.5-17.5); IMMATURE GRANULOCYTES 0.3 % (0-5); LYMPHOCYTES 18.2 % (15-50); MCH 25.3 pg (26.0-34.0); MCHC 30.9 g/dL (31.0-37.0); MCV 81.8 fL (80.0-100.0); MONOCYTES 9.1 % (2-11); NEUTROPHILS 67.7 % (40-80); PLATELET COUNT 231 10x3/uL (130-400); RBC 6.21 10x6/uL (4.20-6.10); RDW 16.9 % (11.5-14.5); WBC 9.5 10x3/uL (4.8-10.8)
[2019-07-21 06:05] LABS: ALBUMIN 2.9 g/dL (3.4-5.0); BILIRUBIN - TOTAL 0.32 mg/dL (0.2-1.3); CALCIUM 8.7 mg/dL (8.5-10.1); CARBON DIOXIDE 31.7 mmol/L (21.0-32.0); CREATININE - SERUM 1.1 mg/dL (0.6-1.3); POTASSIUM - SERUM 3.7 mmol/L (3.5-5.1); PROTEIN - SERUM 8.5 g/dL (6.4-8.2)
--- NOTE | 2019-07-21 08:07 | NUR ---
RESTING IN BED, NO DISTRESS NOTED, RIGHT SIDE WEAKNESS CONT, MONITOR BLOOD SUGARS, IV INFUSING
[2019-07-21 14:24] VITALS: BP 135/75
[2019-07-21 16:56] VITALS: BP 125/76
--- NOTE | 2019-07-21 19:45 | NUR ---
PATIENT ON CANTACT PRECAUTIONS. LYING IN BED SLEEPING. OPENS EYES TO VOICE, A&0. PATIENT HAS NO NEEDS AT THIS TIME. NO ACUTE DISTRESS NOTED. RIGHT CHEST PORT NS@KVO. BED IN LOW POSITION, RAILS X2. BEDSIDE TABLE AND CALL LIGHT WITHIN REACH.
[2019-07-21 20:00] VITALS: BP 123/65
[2019-07-22 06:42] LABS: BASOPHILS 0.7 % (0-2); HEMATOCRIT 48.8 % (42.0-54.0); HEMOGLOBIN 15.3 g/dL (13.5-17.5); IMMATURE GRANULOCYTES 0.4 % (0-5); LYMPHOCYTES 18.1 % (15-50); MCH 25.5 pg (26.0-34.0); MCHC 31.4 g/dL (31.0-37.0); MCV 81.5 fL (80.0-100.0); MEAN PLATELET VOLUME 10.6 fL (7.4-10.4); MONOCYTES 10.1 % (2-11); NEUTROPHILS 65.7 % (40-80); PLATELET COUNT 229 10x3/uL (130-400); RBC 5.99 10x6/uL (4.20-6.10); RDW 16.7 % (11.5-14.5); WBC 10.1 10x3/uL (4.8-10.8)
[2019-07-22 07:05] LABS: ALKALINE PHOSPHATASE 113 U/L (30-120); ALT (SGPT) 108 U/L (10-68); BILIRUBIN - TOTAL 0.37 mg/dL (0.2-1.3); CALC OSMOLALITY 278 mosm/kg (275-300); CALCIUM 9.3 mg/dL (8.5-10.1); CARBON DIOXIDE 30.4 mmol/L (21.0-32.0); CHLORIDE - SERUM 100 mmol/L (98-107); GLUCOSE 98 mg/dL (74-106); POTASSIUM - SERUM 3.6 mmol/L (3.5-5.1); PROTEIN - SERUM 8.6 g/dL (6.4-8.2); SODIUM 136 mmol/L (136-145); UREA NITROGEN 31 mg/dL (7-18); eGFR NON AFRICAN AMERICAN 82 mL/min (90-120)
[2019-07-22 08:38] VITALS: BP 157/40
--- NOTE | 2019-07-22 09:30 | NUR ---
RESTING IN BED, REMAINS IN ISOLATION, IV INFUSING, NO DISTRESS NOTED, NO CHOAKING NOTED ON MEDS OR FOODS
[2019-07-22 12:33] VITALS: BP 144/82
[2019-07-22 17:07] VITALS: BP 123/81
--- NOTE | 2019-07-22 19:30 | NUR ---
PATIENT LYING IN BED. NO ACUTE DISTRESS NOTED AT THIS TIME. ALERT AND ORIENTED, UP WITH ASSIST-WITH PT ONLY. RIGHT WRIST IV W/ NS @KVO, NO REDNESS OR SWELLING NOTED. BED IN LOW POSITION, RAILS X2. BEDSIDE TABLE AND CALL LIGHT WITHIN REACH.
[2019-07-22 19:52] VITALS: BP 118/66
[2019-07-23] VITALS: BP 124/63
[2019-07-23 04:00] VITALS: BP 141/77
[2019-07-23 05:16] LABS: BASOPHILS 0.6 % (0-2); EOSINOPHILS 4.8 % (0-7); HEMATOCRIT 47.9 % (42.0-54.0); HEMOGLOBIN 15.1 g/dL (13.5-17.5); IMMATURE GRANULOCYTES 0.3 % (0-5); LYMPHOCYTES 20.5 % (15-50); MCH 25.4 pg (26.0-34.0); MCHC 31.5 g/dL (31.0-37.0); MCV 80.6 fL (80.0-100.0); MEAN PLATELET VOLUME 10.9 fL (7.4-10.4); MONOCYTES 9.4 % (2-11); NEUTROPHILS 64.4 % (40-80); PLATELET COUNT 232 10x3/uL (130-400); RBC 5.94 10x6/uL (4.20-6.10); RDW 16.4 % (11.5-14.5); WBC 9.3 10x3/uL (4.8-10.8)
[2019-07-23 06:07] LABS: BILIRUBIN - TOTAL 0.31 mg/dL (0.2-1.3); CALCIUM 8.9 mg/dL (8.5-10.1); CARBON DIOXIDE 31.6 mmol/L (21.0-32.0); CREATININE - SERUM 1.1 mg/dL (0.6-1.3); POTASSIUM - SERUM 3.6 mmol/L (3.5-5.1); PROTEIN - SERUM 8.4 g/dL (6.4-8.2)
--- NOTE | 2019-07-23 08:00 | NUR ---
ASSESSMENT PER FLOW SHEET. PATENT IS WITHOUT DISTRESS. MONITOR FOR NEEDS.CALL LIGHT IN REACH
[2019-07-23 08:56] VITALS: BP 164/73
--- NOTE | 2019-07-23 11:45 | MORECARE ---
CASE MANAGEMENT DISCHARGE SUMMARY PATIENT: VALORIE WILHELM UNIT: [id number] ADM DATE: 07/08/19 AGE: 59 : 64 SEX: M ROOM/BED: D.2217 AUTHOR: KISHAN,DOC PHYSICIAN: REFERRING PHYSICIAN: JONATHAN ADAM MD DATE OF SERVICE: 07/23/19 Discharge Plan Patient Name: VALORIE WILHELM [facility] [facility] 1960 Planned Disposition: Home Anticipated Discharge Date: Discharge Date: Expected LOS: Initial Reviewer: [email or web address] Initial Review Date: 07/10/2019 Generated: 07/23/19 12:44 pm Comments DCP- Discharge Planning Updated by [id number]: Naomy Adam on 07/23/19 10:[address] DILLON AT [facility] CALLED THIS MORNING ABOUT HELPING THE PATIENT, REFERRAL SENT TO [facility] DCP- Discharge Planning Updated by [id number]: Naomy Adam on 07/20/19 2:[address] QUEENIE WITH [facility] CALLED AND STATED THAT THEY WOULD BE INTRESTED IT HELPING HIM. I HAVE FAXED CLINCIALS TO HER AND WILL TOUCH BASE WITH HER TUESDAY MORNING. DCP- Discharge Planning Updated by [id number]: Naomy Adam on 07/19/19 2:[address] LILIA WITH [facility] [place] CALLED AND STATED THAT THEY WOULD NOT BE ABLE TO HELP HIM. DCP- Discharge Planning Updated by [email or web address]: Naomy Adam on 07/19/19 11:[address] LILIA, WITH [facility] CALLED AND STATED THAT THEY WOULD TAKE A LOOK AT HIM. I HAVE FAXED CLINICALS TO [phone] DCP- Discharge Planning Updated by [id number]: Naomy Adam on 07/19/19 9:[address] Yanna with [facility] said that all of her facilities were not going to be able to help with therapy. Will continue to try. DCP- Discharge Planning Updated by [id number]: Naomy Adam on 07/19/19 7:[address] SPOKE WITH PATIENT THIS MORNING ABOUT HIS DISCHARGE PLAN AND WHAT WE WERE TRYING TO DO TO HELP HIM. HE IS THANKFUL FOR WHATEVER HELP WE CAN FIND HIM AND KNOWS THAT HE MIGHT EVEN HAVE TO GO OUTSIDE OF [place]. HE IS OK WITH THAT TOO. I EXPLAINED TO HIM THAT WE WERE SENDING AN EMAIL TO FACILITIES ASKING FOR THERAPY IF HE WAS OK WITH THIS & HE GAVE PERMISSION FOR US TO HELP HIM MUCH WE CAN DO AND AGAIN HE WAS VERY THANKFUL DCP- Discharge Planning Updated by [email or web address]: Naomy Adam on 07/18/19 5:[address] LATE ENTRY: 07/17/19 @ 1500 TERERoberta WITH [facility] HERE TO SEE PATIENT, SHE WILL REACH OUT TO HER FACILITIES TO SEE IF THEY CAN HELP. I WILL SEND CLINICALS TO HER DCP- Discharge Planning Updated by [id number]: Naomy Adam on 07/17/19 9:[address] [facility] FOR BOTH OF THEM TO TAKE A LOOK TO SEE IF THEY COULD HELP THE PATIENT DCP- Discharge Planning Updated by [id number]: Naomy Adam on 07/17/19 9:[address] SPOKE TO NILESH ABOUT [facility] AND THEY DO NOT DO THAT, SHE STATED THAT SHE WOULD MAKE A COUPLE OF PHONE CALLS TO SEE IF SHE CAN HELP. I HAVE ALSO REACHED OUT TO YANNA WITH [facility], JAMSHID WITH [facility], AND I WILL REACH OUT TO SOME OTHER LOCAL ONES. DCP- Discharge Planning Updated by [id number]: Naomy Adam on 07/16/19 10:[address] I CALLED [facility] TO SEE IF THEY DID ANY [facility] CASES. MYNOR IS WHO I SPOKE WITH AND SHE SAID THAT THEY DO NOT DO THAT. SHE DID NOT KNOW OF ANY PLACE IN [place] THAT WOULD. CM WILL CONTINUE TO FOLLOW AND ASSIST WITH DC PLANNING NEEDED DCP- Discharge Planning Updated by [id number]: Brigida Calvert on 07/11/19 9:[address] LATE ENTRY - 07/10/19 Patient Name: VALORIE WILHELM Admission Status: ER Accout number: [id number] Admission Date: 07-08-2019 : 1960 Admission Diagnosis: Attending: JONATHAN ADAM Current LOS: 2 Anticipated DC Date: Planned Disposition: Home Primary Insurance: UNINSURED DISCOUNT PLAN Discharge Planning Comments: CM met with patient at bedside after explaining CM role and obtaining verbal consent. Patient lives at home alone where he is independent with his care and plans to return there upon discharge. Patient feels this would be a safe discharge. CM discussed availability / needs of home health and medical equipment. Patient denies any discharge needs at this time. Patient states he will have his family drive him home upon discharge. CM will continue to follow and assist as needed with discharge planning / needs. Oceanology Teacher: Brigida Calvert DCPIA - Discharge Planning Initial Assessment Updated by [email or web address]: Brigida Calvert on 07/11/19 11:45 am * Is the patient Alert and Oriented? Yes * How many steps to enter\exit or inside your home? * PCP NO PCP * [facility]acy [facility] * Preadmission Environment Home Alone * ADLs Independent * Equipment None * List name and contact numbers for known caregivers / representatives who currently or will assist patient after discharge: YAAKOV WILHELM - JENNA - [phone] * Verbal permission to speak to the caregivers and representatives has been obtained from the patient. Yes * Community resources currently utilized None * Additional services required to return to the preadmission environment? No * Can the patient safely return to the preadmission environment? Yes * Has this patient been hospitalized within the prior 30 days at any hospital? No External Providers External Provider: [facility] Next Contact Date: Service Request Date: Service Type: Resolution: Reviewer: Comments: Last DP export: 07/20/19 2:56 pm Patient Name: VALORIE WILHELM Page [id number] at 1145 All edits/amendments must be made on the electronic document DICTATION DATE: 07/23/19 1144 FRONT DESK AUXILIARY: PAM 07/23/19 1144 RPT#: [id number] DC DATE: STATUS: ADM IN [facility] [address] [place] [address] END OF REPORT
--- NOTE | 2019-07-23 13:40 | NUR ---
OT NOTE: PT DOING BETTER TODAY. INCREASED ROM NOTED IN R UE. PRACTICED BED MOB INCLUDING SUPINE TO SIT AND SIT TO SUPINE WITH MIN/MOD ASSIST.. BUT LESS ASSISTANCE NEEDED TODAY VS LAST WEEK. SIT TO STAND WITH MIN ASSIST; STANDING BALANCE WITH MIN ASSIST. ABLE TO TAKE SIDE STEP TO R WITH MIN ASSIST FOR WALKER MGMT AND MOD ASSIST FOR BALANCE DURING STEPAGE. ABLE TO FEED SELF WITH SET UP AND EXT TIME. ABLE TO WASH FACE AND HANDS WITH SET UP. MOD/MAX ASSIST FOR LE DRESSING. EOB STATIC SITTING WITH GOOD BALANCE X 20 MIN. DILLON FARRIS, OTR/L [phone]
[2019-07-23 17:28] VITALS: BP 134/76
--- NOTE | 2019-07-23 19:30 | NUR ---
PATIENT SLEEPING IN BED. OPENS EYES TO MY VOICE. PATIENT STATES HE HAS NO NEEDS AT THIS TIME. SPEACH IS GARBLED AT TIMES WHEN PATIENT SPEAKS. CONTACT PRECUATIONS IN PLACE. BED IN LOW POSTION, RAILSX2. BEDSIDE TABLE AND CALL LIGHT WITHIN REACH.
[2019-07-23 20:00] VITALS: BP 137/76
--- NOTE | 2019-07-23 20:52 | NUR ---
OT NOTE: PT COMPLETED BED MOB TASKS WITH MIN A. PT COMPLETED UE AAROM AXS. PT COMPLETED UB HYGIENE TASKS WITH MIN A. [phone] THANK YOU, VALENTINA RUIZ
[2019-07-24] VITALS (7 sets, daily range): BP systolic 87–149; BP diastolic 46–92
[2019-07-24 05:49] LABS: BASOPHILS 0.8 % (0-2); EOSINOPHILS 4.4 % (0-7); HEMATOCRIT 50.1 % (42.0-54.0); HEMOGLOBIN 15.8 g/dL (13.5-17.5); IMMATURE GRANULOCYTES 0.3 % (0-5); LYMPHOCYTES 21.6 % (15-50); MCH 25.4 pg (26.0-34.0); MCHC 31.5 g/dL (31.0-37.0); MCV 80.4 fL (80.0-100.0); MEAN PLATELET VOLUME 10.9 fL (7.4-10.4); MONOCYTES 8.8 % (2-11); NEUTROPHILS 64.1 % (40-80); PLATELET COUNT 218 10x3/uL (130-400); RBC 6.23 10x6/uL (4.20-6.10); RDW 16.9 % (11.5-14.5); WBC 8.6 10x3/uL (4.8-10.8)
[2019-07-24 06:30] LABS: ALBUMIN 3.2 g/dL (3.4-5.0); ANION GAP 15.5 mmol/L (8-16); BILIRUBIN - TOTAL 0.43 mg/dL (0.2-1.3); CARBON DIOXIDE 30.1 mmol/L (21.0-32.0); CREATININE - SERUM 1.1 mg/dL (0.6-1.3); POTASSIUM - SERUM 3.6 mmol/L (3.5-5.1); PROTEIN - SERUM 8.8 g/dL (6.4-8.2)
--- NOTE | 2019-07-24 08:00 | NUR ---
ALERT AND ORIENTED. LUNGS CLEAR BILATERALLY. HEART SOUNDS S1 AND S2 HEARD IN ALL MENJIVAR. BOWEL SOUNDS ACTIVE X 4. IV TO RIGHT WRIST PATENT WITHOUT REDNESS. WEBB PATENT DRAINING CLEAR YELLOW URINE. DENIES NEEDS. BED LOW. CALL SANON AND PERSONAL ITEMS IN REACH. WILL CONTINUE TO MONITOR.
--- NOTE | 2019-07-24 11:48 | MORECARE ---
CASE MANAGEMENT DISCHARGE SUMMARY PATIENT: VALORIE WILHELM UNIT: [id number] ADM DATE: 07/08/19 AGE: 59 : 64 SEX: M ROOM/BED: D.2217 AUTHOR: KISHAN,DOC PHYSICIAN: REFERRING PHYSICIAN: JONATHAN ADAM MD DATE OF SERVICE: 07/24/19 Discharge Plan Patient Name: VALORIE WILHELM Facility: [facility]:[place] : 1960 Planned Disposition: Home Anticipated Discharge Date: Discharge Date: Expected LOS: Initial Reviewer: [id number] Initial Review Date: 07/10/2019 Generated: 07/24/19 12:48 pm Comments DCP- Discharge Planning Updated by [id number]: Naomy Adam on 07/24/19 10:[address] Alexandra @ [facility] stated that they could not take him. Queenie with [facility] has been updated and we will let her know when we get the new UA back. As soon as he has a neg culture they will accept him for dima therapy. Queenie # [phone] DCP- Discharge Planning Updated by [email or web address]: Naomy Adam on 07/23/19 10:[address] ALEXANDRA AT [facility] CALLED THIS MORNING ABOUT HELPING THE PATIENT, REFERRAL SENT TO [facility] DCP- Discharge Planning Updated by [id number]: Naomy Adam on 07/20/19 2:[address] QUEENIE WITH [facility] CALLED AND STATED THAT THEY WOULD BE INTRESTED IT HELPING HIM. I HAVE FAXED CLINCIALS TO HER AND WILL TOUCH BASE WITH HER TUESDAY MORNING. DCP- Discharge Planning Updated by [email or web address]: Naomy Adam on 07/19/19 2:[address] LILIA WITH [facility] [place] CALLED AND STATED THAT THEY WOULD NOT BE ABLE TO HELP HIM. DCP- Discharge Planning Updated by [id number]: Naomy Adam on 07/19/19 11:[address] LILIA, WITH [facility] CALLED AND STATED THAT THEY WOULD TAKE A LOOK AT HIM. I HAVE FAXED CLINICALS TO [phone] DCP- Discharge Planning Updated by [id number]: Naomy Adam on 07/19/19 9:[address] Yanna with [facility] said that all of her facilities were not going to be able to help with therapy. Will continue to try. DCP- Discharge Planning Updated by [email or web address]: Naomy Adam on 07/19/19 7:[address] SPOKE WITH PATIENT THIS MORNING ABOUT HIS DISCHARGE PLAN AND WHAT WE WERE TRYING TO DO TO HELP HIM. HE IS THANKFUL FOR WHATEVER HELP WE CAN FIND HIM AND KNOWS THAT HE MIGHT EVEN HAVE TO GO OUTSIDE OF [place]. HE IS OK WITH THAT TOO. I EXPLAINED TO HIM THAT WE WERE SENDING AN EMAIL TO FACILITIES ASKING FOR THERAPY IF HE WAS OK WITH THIS & HE GAVE PERMISSION FOR US TO HELP HIM MUCH WE CAN DO AND AGAIN HE WAS VERY THANKFUL DCP- Discharge Planning Updated by [email or web address]: Naomy Adam on 07/18/19 5:[address] LATE ENTRY: 07/17/19 @ 1500 YANNA WITH [facility] HERE TO SEE PATIENT, SHE WILL REACH OUT TO HER FACILITIES TO SEE IF THEY CAN HELP. I WILL SEND CLINICALS TO HER DCP- Discharge Planning Updated by [id number]: Naomy Adam on 07/17/19 9:[address] REFERRAL SENT TO [facility] FOR BOTH OF THEM TO TAKE A LOOK TO SEE IF THEY COULD HELP THE PATIENT DCP- Discharge Planning Updated by [email or web address]: Naomy Adam on 07/17/19 9:[address] SPOKE TO NILESH ABOUT DIMA THERAPY AND THEY DO NOT DO THAT, SHE STATED THAT SHE WOULD MAKE A COUPLE OF PHONE CALLS TO SEE IF SHE CAN HELP. I HAVE ALSO REACHED OUT TO YANNA WITH [facility], JAMSHID WITH [facility], AND I WILL REACH OUT TO SOME OTHER LOCAL ONES. DCP- Discharge Planning Updated by [email or web address]: Naomy Adam on 07/16/19 10:[address] I CALLED [facility] TO SEE IF THEY DID ANY DIMA CASES. MYNOR IS WHO I SPOKE WITH AND SHE SAID THAT THEY DO NOT DO THAT. SHE DID NOT KNOW OF ANY PLACE IN [place] THAT WOULD. CM WILL CONTINUE TO FOLLOW AND ASSIST WITH DC PLANNING NEEDED DCP- Discharge Planning Updated by [id number]: Brigida Calvert on 07/11/19 9:[address] LATE ENTRY - 07/10/19 Patient Name: VALORIE WILHELM Admission Status: ER Accout number: [id number] Admission Date: 07-08-2019 : 1960 Admission Diagnosis: Attending: JONATHAN ADAM Current LOS: 2 Anticipated DC Date: Planned Disposition: Home Primary Insurance: UNINSURED DISCOUNT PLAN Discharge Planning Comments: CM met with patient at bedside after explaining CM role and obtaining verbal consent. Patient lives at home alone where he is independent with his care and plans to return there upon discharge. Patient feels this would be a safe discharge. CM discussed availability / needs of home health and medical equipment. Patient denies any discharge needs at this time. Patient states he will have his family drive him home upon discharge. CM will continue to follow and assist as needed with discharge planning / needs. Health Information Technologist: Brigida BOSWELLA - Discharge Planning Initial Assessment Updated by [email or web address]: Brigida Calvert on 07/11/19 11:45 am * Is the patient Alert and Oriented? Yes * How many steps to enter\exit or inside your home? * PCP NO PCP * [facility]acy [facility] * Preadmission Environment Home Alone * ADLs Independent * Equipment None * List name and contact numbers for known caregivers / representatives who currently or will assist patient after discharge: YAAKOV WILHELM - [facility] - [phone] * Verbal permission to speak to the caregivers and representatives has been obtained from the patient. Yes * Community resources currently utilized None * Additional services required to return to the preadmission environment? No * Can the patient safely return to the preadmission environment? Yes * Has this patient been hospitalized within the prior 30 days at any hospital? No Last DP export: 07/23/19 10:45 am Patient Name: VALORIE WILHELM Page [phone] at 1148 All edits/amendments must be made on the electronic document DICTATION DATE: 07/24/19 114 MACHINE INKER: PAM 07/24/19 1148 RPT#: [id number] DC DATE: STATUS: ADM IN [facility] [address] [place] [address] END OF REPORT
[2019-07-24 14:27] LABS: BACTERIA FEW /hpf (NEGATIVE); BILIRUBIN NEGATIVE (NEGATIVE); EPITHELIAL CELLS RARE /hpf (0-5); GLUCOSE NEGATIVE (NEGATIVE); KETONE NEGATIVE (NEGATIVE); NITRITE NEGATIVE (NEGATIVE); RED CELLS - URINE 0-5 /hpf (0-5); SPECIFIC GRAVITY 1.015 (1.005-1.020); UROBILINOGEN NORMAL (NORMAL); WHITE CELLS - URINE NSEEN /hpf (NEGATIVE)
--- NOTE | 2019-07-24 18:27 | NUR ---
RESTING IN BED. DENIES NEEDS. WILL CONTINUE TO MONITOR.
--- NOTE | 2019-07-24 19:45 | NUR ---
PATIENT LYING IN BED WATCHING TV. CONTACT PRECUATIONS IN PLACE FOR MRSA. NO SIGNS OF ACUTE DISTRESS NOTED. PATIENT STATES HE WOULD LIKE SOME ICE WATER BUT HAS NO FURTHER NEEDS AT THIS TIME. BED IN LOW POSITION, RAILS X2. BEDSIDE TABLE AND CALL LIGHT WITHIN REACH.
[2019-07-25] VITALS (7 sets, daily range): BP systolic 90–164; BP diastolic 52–96
[2019-07-25 05:06] LABS: BASOPHILS 0.6 % (0-2); EOSINOPHILS 5.2 % (0-7); HEMATOCRIT 48.3 % (42.0-54.0); HEMOGLOBIN 15.5 g/dL (13.5-17.5); IMMATURE GRANULOCYTES 0.3 % (0-5); LYMPHOCYTES 25.2 % (15-50); MCH 25.7 pg (26.0-34.0); MCHC 32.1 g/dL (31.0-37.0); MEAN PLATELET VOLUME 10.5 fL (7.4-10.4); MONOCYTES 7.9 % (2-11); NEUTROPHILS 60.8 % (40-80); PLATELET COUNT 227 10x3/uL (130-400); RBC 6.04 10x6/uL (4.20-6.10); RDW 16.7 % (11.5-14.5); WBC 8.9 10x3/uL (4.8-10.8)
[2019-07-25 05:16] LABS: ANION GAP 10.1 mmol/L (8-16); CALCIUM 9.2 mg/dL (8.5-10.1); CARBON DIOXIDE 29.4 mmol/L (21.0-32.0); CREATININE - SERUM 1.1 mg/dL (0.6-1.3); POTASSIUM - SERUM 3.5 mmol/L (3.5-5.1)
--- NOTE | 2019-07-25 07:46 | NUR ---
ALERT AND ORIENTED. LUNGS CLEAR BILATERALLY. HEART SOUNDS S1 AND S2 HEARD IN ALL MENJIVAR. BOWEL SOUNDS ACTIVE X 4. BUTTOCKS WITH PEELING SKIN. PINK BUT BLANCHABLE. IV TO RIGHT WRIST PATENT WITHOUT REDNESS. DENIES NEEDS. BED LOW. CALL SANON AND PERSONAL ITEMS IN REACH. WILL CONTINUE TO MONITOR.
--- NOTE | 2019-07-25 13:20 | NUR ---
NUTRITION F/U PT REMAINS IN ISOLATION. TOLERATING [facility] SOFT DIET WITH THIN LIQUIDS. GOOD INTAKE PER PT REPORT. WILL CONTINUE TO PROVIDE DIET, MONITOR PO INTAKE. RD FOLLOWING
--- NOTE | 2019-07-25 14:13 | NUR ---
RESTING IN BED. DENIES NEEDS. WILL CONTINUE TO MONITOR.
--- NOTE | 2019-07-25 14:54 | NUR ---
BUTTOCKS BLANCHABLE RED AND PEELING. RECOMMENDED CALMOSEPTINE CREAM. PT IS BEING ASSISTED WITH TURNING Q 2 HOURS. WOUND CARE WILL CONTINUE MONITOR.
--- NOTE | 2019-07-25 19:26 | NUR ---
OT NOTE: (DOS 07/24/2019) PT COMPLETED WT BEARING THROUGH R SIDE OF BODY. PT COMPLETED SIT TO STAND WITH MIN/MOD A. PT COMPLETED WT SHIFT FROM L TO R LE. PT COMPLETED WT BEARING THROUGH RUE BY PUSHING UP FROM BED FOR SIT TO STANDS. PT COMPLETED REACHING/GRASP/RELEASE ACTIVITES WITH RUE. PT IS COOPERATIVE AND MOTIVATED . PT COMPLETED FACE HYGIENE WITH RUE. PT EXHIBITED DIFFICULTY OPENING CONTAINERS WITH RUE. [phone] THANK YOU,VALENTINA RUIZ
--- NOTE | 2019-07-25 21:17 | NUR ---
OT NOTE: PT COMPLETED BED TO CHAIR TRANSFER WITH MIN A. PT COMPLETED STANDING BALANCE WITH MIN/MOD A SECONDARY TO R SIDE WEAKNESS. PT COMPLETED BED MOB TASKS WITH CGA FOR LE MANAGEMENT. PT COMPLETED WT BEARING THROUGH RUE WITH SIT TO STANDS. PT DOING VERY WELL. [phone] THANK YOU,VALENTINA RUIZ
[2019-07-26] VITALS (7 sets, daily range): BP systolic 117–154; BP diastolic 68–83
--- NOTE | 2019-07-26 02:15 | NUR ---
I have reviewed this patient and I concur with the Shift Assessment completed by the Licensed Practical Nurse today this shift.
[2019-07-26 05:29] LABS: BASOPHILS 0.7 % (0-2); EOSINOPHILS 4.7 % (0-7); HEMATOCRIT 48.7 % (42.0-54.0); HEMOGLOBIN 15.6 g/dL (13.5-17.5); IMMATURE GRANULOCYTES 0.3 % (0-5); MCH 25.6 pg (26.0-34.0); MCV 79.8 fL (80.0-100.0); MEAN PLATELET VOLUME 10.8 fL (7.4-10.4); MONOCYTES 8.2 % (2-11); NEUTROPHILS 63.1 % (40-80); PLATELET COUNT 221 10x3/uL (130-400); RDW 16.5 % (11.5-14.5)
[2019-07-26 05:58] LABS: CALC OSMOLALITY 283 mosm/kg (275-300); CALCIUM 9.2 mg/dL (8.5-10.1); CARBON DIOXIDE 28.2 mmol/L (21.0-32.0); CHLORIDE - SERUM 103 mmol/L (98-107); GLUCOSE 90 mg/dL (74-106); POTASSIUM - SERUM 3.5 mmol/L (3.5-5.1); SODIUM 139 mmol/L (136-145); UREA NITROGEN 29 mg/dL (7-18); eGFR NON AFRICAN AMERICAN 82 mL/min (90-120)
--- NOTE | 2019-07-26 17:06 | NUR ---
OT NOTE: PT PERFORMED VERY WELL TODAY. REQUIRED EXTENSIVE ASSISTANCE DUE TO ACITIVITY AND EQUIP REQUIRED. PT ABLE TO PERFORM BED MOB REQUIRING ONLY MIN ASSIST TODAY ( USUALLY REQUIRES MOD); INCREASED USE OF R HAND NOTED; ABLE TO SOFÍA GOWN WITH MIN ASSIST AND EXT TIME. SIT TO STAND WITH WALKER AND MIN ASSIST; MIN ASSIST X 2 FOR AMBULATION INTO HALLWAY WITH USE OF WALKER, IV, AND CHAIR PUSHED BEHIND PT. PT AMB APPROX 15 FT TODAY AND WAS ALSO ABLE TO MANAGE WALKER WITH R HAND. VERY FATIGUED WHEN COMPLETED. ABLE TO WASH HANDS AND FACE WITH SET UP; OCCASSIONAL ASSIST WITH MEAL BUT MOSTLY SET UP. EDUCATED ON UE EXS TO PERFORM WHILE SITTING UP IN CHAIR. PT MAKING GREAT PROGRESS. DILLON FARRIS, OTR/L [phone]
--- NOTE | 2019-07-26 17:19 | NUR ---
OT NOTE: PT COMPLETED BED MOB TASKS WITH MIN A. PT COMPLETED SIT TO STAND WITH MIN A. PT COMPLETED ADL MOB WITH MIN A X3 SECONDARY TO MEDICAL EQUIPMENT MANAGMENT FOR INCREASED PT SAFETY. PT COMPLETED UB HYGIENE TASKS AT EOB WITH CGA/MIN A WITH INCREASED ASSISTANCE WITH RUE. PT IS DOING VERY WELL WITH THERAPY TASKS. [phone] THANK YOU,VALENTINA RUIZ
[2019-07-27 04:00] VITALS: BP 140/69
[2019-07-27 04:48] LABS: EOSINOPHILS 5.5 % (0-7); HEMATOCRIT 48.6 % (42.0-54.0); HEMOGLOBIN 15.6 g/dL (13.5-17.5); IMMATURE GRANULOCYTES 0.2 % (0-5); LYMPHOCYTES 24.4 % (15-50); MCH 25.7 pg (26.0-34.0); MCHC 32.1 g/dL (31.0-37.0); MCV 80.1 fL (80.0-100.0); MEAN PLATELET VOLUME 10.8 fL (7.4-10.4); MONOCYTES 9.2 % (2-11); NEUTROPHILS 59.7 % (40-80); PLATELET COUNT 211 10x3/uL (130-400); RBC 6.07 10x6/uL (4.20-6.10); RDW 16.6 % (11.5-14.5); WBC 8.3 10x3/uL (4.8-10.8)
[2019-07-27 05:32] LABS: CALC OSMOLALITY 278 mosm/kg (275-300); CALCIUM 9.4 mg/dL (8.5-10.1); CARBON DIOXIDE 28.2 mmol/L (21.0-32.0); CHLORIDE - SERUM 103 mmol/L (98-107); GLUCOSE 93 mg/dL (74-106); POTASSIUM - SERUM 3.5 mmol/L (3.5-5.1); SODIUM 137 mmol/L (136-145); UREA NITROGEN 27 mg/dL (7-18); eGFR NON AFRICAN AMERICAN 82 mL/min (90-120)
[2019-07-27 08:57] VITALS: BP 147/90
--- NOTE | 2019-07-27 09:00 | NUR ---
ALERT AND ORIENTED X4. RIVERA. HAND GRASP EQUAL WITH GOOD ROM OF BLE AND BUE. WEBB CATH PATENT WITH CLEAR JOHN URINE. OV TO RT. WRIST WITH NO S/S OF INFECTION/INFILTRATION. PATIENT REFUSES SCD'S. ENCOURAGED TO USE CALL LIGHT FOR ASSSIT.
--- NOTE | 2019-07-27 11:51 | MORECARE ---
CASE MANAGEMENT DISCHARGE SUMMARY PATIENT: VALORIE WILHELM UNIT: [id number] ADM DATE: 07/08/19 AGE: 59 : 64 SEX: M ROOM/BED: D.2217 AUTHOR: KISHAN,DOC PHYSICIAN: REFERRING PHYSICIAN: JONATHAN ADAM MD DATE OF SERVICE: 07/27/19 Discharge Plan Patient Name: VALORIE WILHELM Facility[facility]:[place] : 1960 Planned Disposition: Home Anticipated Discharge Date: Discharge Date: Expected LOS: Initial Reviewer: [email or web address] Initial Review Date: 07/10/2019 Generated: 07/27/19 12:51 pm Comments DCP- Discharge Planning Updated by [id number]: Naomy Adam on 07/27/19 10:[address] spoke with Hayley at [facility] and they are going to accept the patient. I went and spoke with the patient and he is scared, but knows that is the next step to getting better. I had Hayley talk to him about the process and about their facility. He is ok and is agreeable to it. He was talking to his son to let him know and he will bring him up clothes to them. CM will continue to help and assist as needed DCP- Discharge Planning Updated by [id number]: Naomy Adam on 07/24/19 10:[address] Alexandra @ [facility] stated that they could not take him. Hayley Diaz has been updated and we will let her know when we get the new UA back. As soon as he has a neg culture they will accept him for dima therapy. Hayley # [phone] DCP- Discharge Planning Updated by [id number]: Naomy Adam on 07/23/19 10:[address] ALEXANDRA AT [facility] CALLED THIS MORNING ABOUT HELPING THE PATIENT, REFERRAL SENT TO [facility] DCP- Discharge Planning Updated by [id number]: Naomy Adam on 07/20/19 2:49 pm [facility] CALLED AND STATED THAT THEY WOULD BE INTRESTED IT HELPING HIM. I HAVE FAXED CLINCIALS TO HER AND WILL TOUCH BASE WITH HER CAROLINE MORNING. DCP- Discharge Planning Updated by [id number]: Naomy Adam on 07/19/19 2:[address] LILIA WITH [facility] [place] CALLED AND STATED THAT THEY WOULD NOT BE ABLE TO HELP HIM. DCP- Discharge Planning Updated by [id number]: Naomy Adam on 07/19/19 11:[address] LILIA, WITH [facility] CALLED AND STATED THAT THEY WOULD TAKE A LOOK AT HIM. I HAVE FAXED CLINICALS TO [phone] DCP- Discharge Planning Updated by [id number]: Naomy Adam on 07/19/19 9:[address] Yanna with [facility] said that all of her facilities were not going to be able to help with therapy. Will continue to try. DCP- Discharge Planning Updated by [id number]: Naomy Adam on 07/19/19 7:[address] SPOKE WITH PATIENT THIS MORNING ABOUT HIS DISCHARGE PLAN AND WHAT WE WERE TRYING TO DO TO HELP HIM. HE IS THANKFUL FOR WHATEVER HELP WE CAN FIND HIM AND KNOWS THAT HE MIGHT EVEN HAVE TO GO OUTSIDE OF [place]. HE IS OK WITH THAT TOO. I EXPLAINED TO HIM THAT WE WERE SENDING AN EMAIL TO FACILITIES ASKING FOR THERAPY IF HE WAS OK WITH THIS & HE GAVE PERMISSION FOR US TO HELP HIM MUCH WE CAN DO AND AGAIN HE WAS VERY THANKFUL DCP- Discharge Planning Updated by [email or web address]: Naomy Adam on 07/18/19 5:[address] LATE ENTRY: 07/17/19 @ 1500 YANNA WITH THE [facility] HERE TO SEE PATIENT, SHE WILL REACH OUT TO HER FACILITIES TO SEE IF THEY CAN HELP. I WILL SEND CLINICALS TO HER DCP- Discharge Planning Updated by [id number]: Naomy Adam on 07/17/19 9:[address] REFERRAL SENT TO [facility] FOR BOTH OF THEM TO TAKE A LOOK TO SEE IF THEY COULD HELP THE PATIENT DCP- Discharge Planning Updated by [id number]: Naomy Adam on 07/17/19 9:[address] SPOKE TO NILESH ABOUT DIMA THERAPY AND THEY DO NOT DO THAT, SHE STATED THAT SHE WOULD MAKE A COUPLE OF PHONE CALLS TO SEE IF SHE CAN HELP. I HAVE ALSO REACHED OUT TO YANNA WITH [facility], JAMSHID WITH [facility], AND I WILL REACH OUT TO SOME OTHER LOCAL ONES. DCP- Discharge Planning Updated by [id number]: Naomy Adam on 07/16/19 10:[address] I CALLED [facility] TO SEE IF THEY DID ANY DIMA CASES. MYNOR IS WHO I SPOKE WITH AND SHE SAID THAT THEY DO NOT DO THAT. SHE DID NOT KNOW OF ANY PLACE IN [place] THAT WOULD. CM WILL CONTINUE TO FOLLOW AND ASSIST WITH DC PLANNING NEEDED DCP- Discharge Planning Updated by [id number]: Brigida Calvert on 07/11/19 9:[address] LATE ENTRY - 07/10/19 Patient Name: VALORIE WILHELM Admission Status: ER Accout number: [id number] Admission Date: 07-08-2019 : 1960 Admission Diagnosis: Attending: JONATHAN ADAM Current LOS: 2 Anticipated DC Date: Planned Disposition: Home Primary Insurance: UNINSURED DISCOUNT PLAN Discharge Planning Comments: CM met with patient at bedside after explaining CM role and obtaining verbal consent. Patient lives at home alone where he is independent with his care and plans to return there upon discharge. Patient feels this would be a safe discharge. CM discussed availability / needs of home health and medical equipment. Patient denies any discharge needs at this time. Patient states he will have his family drive him home upon discharge. CM will continue to follow and assist as needed with discharge planning / needs. Truck Packer: Brigida Calvert DCPIA - Discharge Planning Initial Assessment Updated by [id number]: Brigida Calvert on 07/11/19 11:45 am * Is the patient Alert and Oriented? Yes * How many steps to enter\exit or inside your home? * PCP NO PCP * Pharmacy [facility] * Preadmission Environment Home Alone * ADLs Independent * Equipment None * List name and contact numbers for known caregivers / representatives who currently or will assist patient after discharge: YAAKOV WILHELM - [facility] - [phone] * Verbal permission to speak to the caregivers and representatives has been obtained from the patient. Yes * Community resources currently utilized None * Additional services required to return to the preadmission environment? No * Can the patient safely return to the preadmission environment? Yes * Has this patient been hospitalized within the prior 30 days at any hospital? No Last DP export: 07/24/19 10:49 a Patient Name: VALORIE WILHELM Page 41236 at 1151 All edits/amendments must be made on the electronic document DICTATION DATE: 07/27/19 1151 FIRE CHIEF: PAM 07/27/19 1151 RPT#: [id number] DC DATE: STATUS: ADM IN [facility] [address] [place] [address] END OF REPORT
[2019-07-27] MEDS ORDERED: LISINOPRIL10 MG PO (11:56)
[2019-07-27] MEDS ORDERED: NICARDIPINE HCL30 MG PO (11:56)
[2019-07-27] MEDS ORDERED: MUCINEX600 MG PO (11:56)
[2019-07-27] MEDS ORDERED: TESSALON PERLE100 MG PO (11:56)
[2019-07-27] MEDS ORDERED: CALMOSEPTINE OI71 GM TOPICAL (11:57)
--- NOTE | 2019-07-27 12:30 | NUR ---
WEBB CATH DISCONTINUED AND ENCOURAGED TO USE CALL LIGHT FOR ASSSIT.
[2019-07-27 12:48] VITALS: BP 149/75
--- NOTE | 2019-07-27 15:03 | NUR ---
REPORT CALLED TO [facility] WITH REPORT CALLED TO [facility]. IV DISCONTINUED AND VERBALIZED UNDERSTANDING OF DISCHARGE INSTRUCTIONS. STABLE AT TIME OF DEPARTURE WITH [facility] TRANSPORTATION.
--- NOTE | 2019-07-28 09:45 | MORECARE ---
CASE MANAGEMENT DISCHARGE SUMMARY PATIENT: VALORIE WILHELM UNIT: [id number] ADM DATE: 07/08/19 AGE: 59 : 64 SEX: M ROOM/BED: D.2217 AUTHOR: KISHAN,DOC PHYSICIAN: REFERRING PHYSICIAN: JONATHAN ADAM MD DATE OF SERVICE: 07/28/19 Discharge Plan Patient Name: VALORIE WILHELM Facility: [facility]:Madeline : 1960 Planned Disposition: Home Anticipated Discharge Date: Discharge Date: 07/27/2019 Expected LOS: Initial Reviewer: [email or web address] Initial Review Date: 07/10/2019 Generated: 07/28/19 10:45 am Comments DCP- Discharge Planning Updated by [id number]: Naomy Adam on 07/27/19 10:[address] spoke with Hayley at [facility] and they are going to accept the patient. I went and spoke with the patient and he is scared, but knows that is the next step to getting better. I had Hayley talk to him about the process and about their facility. He is ok and is agreeable to it. He was talking to his son to let him know and he will bring him up clothes to them. CM will continue to help and assist as needed DCP- Discharge Planning Updated by [email or web address]: Naomy Adam on 07/24/19 10:[address] Alexandra @ [facility] stated that they could not take him. Hayley Diaz has been updated and we will let her know when we get the new UA back. As soon as he has a neg culture they will accept him for dima therapy. Hayley # [phone] DCP- Discharge Planning Updated by [email or web address]: Naomy Adam on 07/23/19 10:39 am EM CARRANZA AT [facility] CALLED THIS MORNING ABOUT HELPING THE PATIENT, REFERRAL SENT TO [facility] DCP- Discharge Planning Updated by [id number]: Naomy Adam on 07/20/19 2:49 pm EM DIAZ CALLED AND STATED THAT THEY WOULD BE INTRESTED IT HELPING HIM. I HAVE FAXED CLINCIALS TO HER AND WILL TOUCH BASE WITH HER TUESDAY MORNING. DCP- Discharge Planning Updated by [id number]: Naomy Adam on 07/19/19 2:[address] LILIA WITH [facility] [place] CALLED AND STATED THAT THEY WOULD NOT BE ABLE TO HELP HIM. DCP- Discharge Planning Updated by [email or web address]: Naomy Adam on 07/19/19 11:[address] LILIA, WITH [facility] CALLED AND STATED THAT THEY WOULD TAKE A LOOK AT HIM. I HAVE FAXED CLINICALS TO [phone] DCP- Discharge Planning Updated by [email or web address]: Naomy Adam on 07/19/19 9:[address] Yanna with [facility] said that all of her facilities were not going to be able to help with therapy. Will continue to try. DCP- Discharge Planning Updated by [id number]: Naomy Adam on 07/19/19 7:[address] SPOKE WITH PATIENT THIS MORNING ABOUT HIS DISCHARGE PLAN AND WHAT WE WERE TRYING TO DO TO HELP HIM. HE IS THANKFUL FOR WHATEVER HELP WE CAN FIND HIM AND KNOWS THAT HE MIGHT EVEN HAVE TO GO OUTSIDE OF [place]. HE IS OK WITH THAT TOO. I EXPLAINED TO HIM THAT WE WERE SENDING AN EMAIL TO FACILITIES ASKING FOR THERAPY IF HE WAS OK WITH THIS & HE GAVE PERMISSION FOR US TO HELP HIM MUCH WE CAN DO AND AGAIN HE WAS VERY THANKFUL DCP- Discharge Planning Updated by [id number]: Naomy Adam on 07/18/19 5:[address] LATE ENTRY: 07/17/19 @ 1500 TERERoberta WITH THE [facility] HERE TO SEE PATIENT, SHE WILL REACH OUT TO HER FACILITIES TO SEE IF THEY CAN HELP. I WILL SEND CLINICALS TO HER DCP- Discharge Planning Updated by [email or web address]: Naomy Adam on 07/17/19 9:[address] REFERRAL SENT TO [facility] FOR BOTH OF THEM TO TAKE A LOOK TO SEE IF THEY COULD HELP THE PATIENT DCP- Discharge Planning Updated by [email or web address]: Naomy Adam on 07/17/19 9:[address] SPOKE TO NILESH ABOUT DIMA THERAPY AND THEY DO NOT DO THAT, SHE STATED THAT SHE WOULD MAKE A COUPLE OF PHONE CALLS TO SEE IF SHE CAN HELP. I HAVE ALSO REACHED OUT TO YANNA WITH [facility], JAMSHID WITH [facility], AND I WILL REACH OUT TO SOME OTHER LOCAL ONES. DCP- Discharge Planning Updated by [email or web address]: Naomy Jair on 07/16/19 10:[address] I CALLED [facility] TO SEE IF THEY DID ANY DIMA CASES. MYNOR IS WHO I SPOKE WITH AND SHE SAID THAT THEY DO NOT DO THAT. SHE DID NOT KNOW OF ANY PLACE IN [place] THAT WOULD. CM WILL CONTINUE TO FOLLOW AND ASSIST WITH DC PLANNING NEEDED DCP- Discharge Planning Updated by [email or web address]: Brigida Calvert on 07/11/19 9:[address] LATE ENTRY - 07/10/19 Patient Name: VALORIE WILHELM Admission Status: ER Accout number: [id number] Admission Date: 07-08-2019 : 1960 Admission Diagnosis: Attending: JONATHAN ADAM Current LOS: 2 Anticipated DC Date: Planned Disposition: Home Primary Insurance: UNINSURED DISCOUNT PLAN Discharge Planning Comments: CM met with patient at bedside after explaining CM role and obtaining verbal consent. Patient lives at home alone where he is independent with his care and plans to return there upon discharge. Patient feels this would be a safe discharge. CM discussed availability / needs of home health and medical equipment. Patient denies any discharge needs at this time. Patient states he will have his family drive him home upon discharge. CM will continue to follow and assist as needed with discharge planning / needs. Funds Development Director: Brigida Calvert DCPIA - Discharge Planning Initial Assessment Updated by [email or web address]: Brigida Calvert on 07/11/19 11:45 am * Is the patient Alert and Oriented? Yes * How many steps to enter\exit or inside your home? * PCP NO PCP * [facility]acy [facility] * Preadmission Environment Home Alone * ADLs Independent * Equipment None * List name and contact numbers for known caregivers / representatives who currently or will assist patient after discharge: YAAKOV WILHELM - [facility] - [phone] * Verbal permission to speak to the caregivers and representatives has been obtained from the patient. Yes * Community resources currently utilized None * Additional services required to return to the preadmission environment? No * Can the patient safely return to the preadmission environment? Yes * Has this patient been hospitalized within the prior 30 days at any hospital? No Last DP export: 3/13/20 10:51 a Patient Name: VALORIE WILHELM Page [id number] at 0945 All edits/amendments must be made on the electronic document DICTATION DATE: 07/28/19944 SEARCH ENGINE OPTIMIZER: PAM 07/28/19944 RPT#: [id number] DC DATE:07/27/19 STATUS: DIS IN [facility] [address] [place] [address] END OF REPORT
== END 2019-07-27 15:05 | DRG 64 ==
LOC: D.ER 16:57 → D.MS 18:33 → D.ICU 18:33 → D.MS 07-11 12:40
PROVIDERS: Emergency Medicine; Family Medicine; ADMIT Internal Medicine Nephrology; ATTEND Internal Medicine Nephrology
DX: I61.3 Nontraumatic intracerebral hemorrhage in brain stem (principal); G93.6 Cerebral edema; N17.9 Acute kidney failure, unspecified; I16.1 Hypertensive emergency; G93.40 Encephalopathy, unspecified; E11.9 Type 2 diabetes mellitus without complications; F41.8 Other specified anxiety disorders; Z91.14 Patient's other noncompliance with medication regimen; E87.6 Hypokalemia; H53.2 Diplopia; R33.9 Retention of urine, unspecified; A49.02 Methicillin resistant Staphylococcus aureus infection, unspecified site

== ENCOUNTER 2020-11-12 07:25 | Emergency (ER) | payer MEDICAID ==
[~2020-11-12] VITALS: Ht 172.7 cm; Wt 143.2 kg
[~2020-11-12 07:25] MED LIST changes: +CALMOSEPTINE OI71 GM TOPICAL; +MUCINEX600 MG PO; +NICARDIPINE HCL30 MG PO; +TESSALON PERLE100 MG PO
[2020-11-12 07:31] VITALS: Ht 172.7 cm; Wt 143.2 kg
[2020-11-12] MEDS ORDERED: HYDROCODONE-AC1 EAC2 PO (08:40)
[2020-11-12 09:35] VITALS: BP 157/81
== END 2020-11-12 14:53 ==
LOC: D.ER 07:25
DX: M25.512 Pain in left shoulder (principal); S42.302A Unspecified fracture of shaft of humerus, left arm, initial encounter for closed fracture; W19.XXXA Unspecified fall, initial encounter; E11.9 Type 2 diabetes mellitus without complications; I10 Essential (primary) hypertension